=== PATIENT | male | born 1930 | race Caucasian/White ===

== ENCOUNTER 2016-05-15 15:51 | Inpatient (IN) | payer OTHER ==
[~2016-05-15] VITALS: Ht 188 cm; Wt 93.6 kg
[~2016-05-15 15:51] MED LIST: ASPI-515 PO; ATOR80TA PO; CALC-31 PO; CARV12.52 PO; CARV3.122 PO; CHOL10002 PO; CYAN10008 PO; DICL50TA4 PO; ENAL20TA PO; FERR325T20 PO; FLUT16SP NAS; FURO-93 PO; GLUC1500 PO; LEVO750T26 PO; LEVO750T6 PO; LISI-420 PO; LOSA50TA6 PO; METF500T4 PO; OMEG500C3 PO; OMEP20TA62 PO; SIMV80TA3 PO; VALS80TA3 PO; ZOLP10TA5 PO
[2016-05-15] MEDS ORDERED: SODIUM CHLORIDE FLUSH 10ML SYR IVF ONE (16:30)
[2016-05-15 16:45] LABS: HEMOGLOBIN 11.4 g/dL (13.7-18.0)
[2016-05-15 16:56] LABS: BLOOD UREA NITROGEN 15 mg/dL (7-18)
[2016-05-15 17:05] LABS: IS PT STATUS REG ER OR PRE ER? YES
[2016-05-15] MEDS ORDERED: FUROSEMIDE 40 MG/4 ML ONE (17:29)
[2016-05-15] MEDS ORDERED: NITROGLYCERIN OINT 2%, 1GM TP ONE ×2 (17:29→17:30)
[2016-05-15] MEDS ORDERED: FUROSEMIDE 40 MG/4 ML IVPush ONE (17:30)
[2016-05-15] MEDS ORDERED: DOCUSATE 100 MG CAPSULE PO PRN (18:30)
[2016-05-15] MEDS ORDERED: POLYETHYLENE GLYCOL 17 GM PACKET PO PRN (18:30)
[2016-05-15 22:30] VITALS: BP 159/63
[2016-05-15 22:53] VITALS: BP 159/63
[2016-05-15] MEDS: LOSARTAN 50MG TABLET PO SCH (23:10)
[2016-05-15] MEDS: CARVEDILOL 3.125 MG TABLET PO SCH (23:10)
[2016-05-15] MEDS: ATORVASTATIN 80 MG TABLET PO SCH (23:10)
[2016-05-15] MEDS: metFORMIN 500 MG TABLET PO SCH (23:10)
[2016-05-16 04:05] VITALS: BP 163/90
[2016-05-16 07:27] LABS: BLOOD UREA NITROGEN 17 mg/dL (7-18)
[2016-05-16 08:00] VITALS: BP 131/69
[2016-05-16] MEDS ORDERED: FUROSEMIDE 40 MG/4 ML IV ONE (09:00)
[2016-05-16] MEDS: metFORMIN 500 MG TABLET PO SCH ×2 (09:54→21:32)
[2016-05-16] MEDS: CARVEDILOL 3.125 MG TABLET PO SCH ×2 (09:54→21:31)
[2016-05-16] MEDS: ASPIRIN 81 MG TABLET EC PO SCH (09:54)
[2016-05-16] MEDS: DICLOFENAC 50 MG TABLET.DR PO SCH (09:54)
[2016-05-16] MEDS: FERROUS SULFATE 325 MG TABLET PO SCH (09:55)
[2016-05-16] MEDS: LOSARTAN 50MG TABLET PO SCH ×2 (09:55→21:32)
[2016-05-16] MEDS: CHOLECALCIFEROL 1,000 UNIT TABLET PO SCH (09:55)
[2016-05-16 15:11] VITALS: BP 108/64
[2016-05-16 19:22] VITALS: BP 117/72
[2016-05-16 19:27] VITALS: BP 129/69
[2016-05-16] MEDS: ATORVASTATIN 80 MG TABLET PO SCH (21:32)
[2016-05-16 21:44] VITALS: BP 125/68
[2016-05-17] MEDS ORDERED: DIPHENHYDRAMINE 25 MG CAPSULE PO ONE (01:00)
[2016-05-17 02:55] VITALS: BP 109/68
[2016-05-17 07:30] VITALS: BP 124/78
[2016-05-17] MEDS: LOSARTAN 50MG TABLET PO SCH (08:15)
[2016-05-17] MEDS: CHOLECALCIFEROL 1,000 UNIT TABLET PO SCH (08:16)
[2016-05-17] MEDS: CARVEDILOL 3.125 MG TABLET PO SCH (08:17)
[2016-05-17] MEDS: FERROUS SULFATE 325 MG TABLET PO SCH (08:18)
[2016-05-17] MEDS: ASPIRIN 81 MG TABLET EC PO SCH (08:18)
[2016-05-17] MEDS: DICLOFENAC 50 MG TABLET.DR PO SCH (08:18)
[2016-05-17] MEDS: metFORMIN 500 MG TABLET PO SCH (08:19)
[2016-05-17 14:14] VITALS: BP 113/73
== END 2016-05-17 18:35 | disposition home health service (06) | DRG 291 ==
LOC: ED 16:33 → EDIP 17:36 → 4WST 22:18
PROVIDERS: ADMIT Student in an Organized Health Care Education/Training Program; ATTEND Student in an Organized Health Care Education/Training Program
DX: I11.0 Hypertensive heart disease with heart failure (principal); J96.01 Acute respiratory failure with hypoxia; I50.43 Acute on chronic combined systolic (congestive) and diastolic (congestive) heart failure; E11.9 Type 2 diabetes mellitus without complications; E78.5 Hyperlipidemia, unspecified; D64.9 Anemia, unspecified; G47.33 Obstructive sleep apnea (adult) (pediatric); I25.10 Atherosclerotic heart disease of native coronary artery without angina pectoris; I35.0 Nonrheumatic aortic (valve) stenosis; K21.9 Gastro-esophageal reflux disease without esophagitis; Z95.5 Presence of coronary angioplasty implant and graft; I25.2 Old myocardial infarction; Z90.49 Acquired absence of other specified parts of digestive tract; Z91.041 Radiographic dye allergy status; Z82.49 Family history of ischemic heart disease and other diseases of the circulatory system
CPT/HCPCS: 36415; 71010; 80048; 82040; 82962; 83880; 84484; 85025; 93005; 93306; 96374; J1940; Q0163

== ENCOUNTER → 2016-07-10 | Outpatient (CLI) | payer OTHER | END | disposition home or self-care (01) | LOC: CFH 15:37 | PROVIDERS: ATTEND Internal Medicine Cardiovascular Disease | DX: I08.3 Combined rheumatic disorders of mitral, aortic and tricuspid valves (principal); I37.1 Nonrheumatic pulmonary valve insufficiency; I51.7 Cardiomegaly; I10 Essential (primary) hypertension; E78.5 Hyperlipidemia, unspecified; Z95.5 Presence of coronary angioplasty implant and graft | CPT/HCPCS: 93306 ==

== ENCOUNTER 2016-08-27 08:44 | Emergency (ER) | payer OTHER ==
[~2016-08-27] VITALS: Ht 185.4 cm; Wt 93.9 kg
[2016-08-27 09:45] VITALS: BP 146/83
== END 2016-08-27 10:57 | disposition home or self-care (01) ==
LOC: ED 10:51
DX: S39.012A Strain of muscle, fascia and tendon of lower back, initial encounter (principal); E11.9 Type 2 diabetes mellitus without complications; E78.5 Hyperlipidemia, unspecified; I10 Essential (primary) hypertension; K21.9 Gastro-esophageal reflux disease without esophagitis; W01.0XXA Fall on same level from slipping, tripping and stumbling without subsequent striking against object, initial encounter; Y93.89 Activity, other specified; Y99.8 Other external cause status; Y92.009 Unspecified place in unspecified non-institutional (private) residence as the place of occurrence of the external cause
CPT/HCPCS: 72110; 99284

== ENCOUNTER 2016-09-08 17:04 | Inpatient (IN) | payer OTHER ==
[~2016-09-08] VITALS: Ht 186.7 cm; Wt 81.0 kg
[2016-09-08] MEDS ORDERED: SODIUM CHLORIDE FLUSH 10ML SYR IVF ONE (18:00)
[2016-09-08 18:25] LABS: BLOOD UREA NITROGEN 18 mg/dL (7-18)
[2016-09-08 18:31] LABS: IS PT STATUS REG ER OR PRE ER? YES
[2016-09-08] MEDS ORDERED: OXYC-223 PO (19:43)
[2016-09-08 21:18] VITALS: BP 157/90
[2016-09-08] MEDS ORDERED: GLUCAGON 1 MG IM PRN (23:30)
[2016-09-08] MEDS ORDERED: DICLOFENAC 50 MG TABLET.DR PO PRN ×2 (23:30)
[2016-09-08] MEDS ORDERED: DEXTROSE 50%, 50ML SYRINGE IVPush PRN (23:30)
[2016-09-08] MEDS ORDERED: ENALAPRILAT 1.25 MG/ML, 2ML IVPush PRN (23:30)
[2016-09-08] MEDS ORDERED: ACETAMINOPHEN 325 MG TABLET PO PRN (23:30)
[2016-09-08 23:39] LABS: IS PT STATUS REG ER OR PRE ER? NO
[2016-09-08] MEDS: OXYcodone/APAP 5/325MG TABLET PO PRN ×2 (23:51→23:54)
[2016-09-09 02:40] VITALS: BP 134/73
[2016-09-09 03:25] LABS: IS PT STATUS REG ER OR PRE ER? NO
[2016-09-09] MEDS: OXYcodone/APAP 5/325MG TABLET PO PRN ×2 (04:09→12:17)
[2016-09-09] MEDS ORDERED: INSULIN ASPART 100 UNITS/ML, PEN SQ-INSULIN SCH (07:00)
[2016-09-09 07:05] LABS: IS PT STATUS REG ER OR PRE ER? NO
[2016-09-09 07:24] VITALS: BP 119/67
[2016-09-09] MEDS ORDERED: FUROSEMIDE 20 MG TABLET PO SCH (09:00)
[2016-09-09] MEDS ORDERED: LOSARTAN 50MG TABLET PO SCH (09:00)
[2016-09-09] MEDS ORDERED: OMEPRAZOLE 20 MG CAPSULE.DR PO SCH (09:00)
[2016-09-09] MEDS ORDERED: CARVEDILOL 3.125 MG TABLET PO SCH (09:00)
[2016-09-09] MEDS ORDERED: CHOLECALCIFEROL 1,000 UNIT TABLET PO SCH (09:00)
[2016-09-09] MEDS ORDERED: FLUTICASONE NASAL SPRAY 16GM NAS SCH (09:00)
[2016-09-09] MEDS ORDERED: ASPIRIN 81 MG TABLET EC PO SCH (09:00)
[2016-09-09] MEDS ORDERED: FERROUS SULFATE 325 MG TABLET PO SCH (09:00)
[2016-09-09] MEDS ORDERED: SODIUM CHLORIDE FLUSH 10ML SYR IVF SCH (09:00)
[2016-09-09] MEDS ORDERED: DICL50TA4 PO (10:46)
[2016-09-09] MEDS ORDERED: OXYC1TAB7 PO (10:46)
[2016-09-09] MEDS ORDERED: ATORVASTATIN 80 MG TABLET PO SCH (21:00)
== END 2016-09-09 13:25 | disposition home or self-care (01) | DRG 551 ==
LOC: ED 19:24 → EDIP 20:17 → 5SO 20:28
PROVIDERS: ADMIT Family Medicine; ATTEND Family Medicine
PROC: 5A09357 Assistance with Respiratory Ventilation, Less than 24 Consecutive Hours, Continuous Positive Airway Pressure (ICD-10-PCS; principal; 2016-09-08)
DX: M51.36 Other intervertebral disc degeneration, lumbar region (principal); J96.01 Acute respiratory failure with hypoxia; S32.020A Wedge compression fracture of second lumbar vertebra, initial encounter for closed fracture; M54.5 Low back pain; I11.0 Hypertensive heart disease with heart failure; I50.9 Heart failure, unspecified; E11.9 Type 2 diabetes mellitus without complications; E78.5 Hyperlipidemia, unspecified; G47.33 Obstructive sleep apnea (adult) (pediatric); G89.29 Other chronic pain; Z66 Do not resuscitate; I25.10 Atherosclerotic heart disease of native coronary artery without angina pectoris; I25.2 Old myocardial infarction; J44.9 Chronic obstructive pulmonary disease, unspecified; Z91.041 Radiographic dye allergy status; Z95.5 Presence of coronary angioplasty implant and graft; Z99.81 Dependence on supplemental oxygen; Z87.01 Personal history of pneumonia (recurrent); Z82.49 Family history of ischemic heart disease and other diseases of the circulatory system; Z83.3 Family history of diabetes mellitus; Z84.89 Family history of other specified conditions; Z79.82 Long term (current) use of aspirin; Z79.84 Long term (current) use of oral hypoglycemic drugs; Z79.899 Other long term (current) drug therapy
CPT/HCPCS: 36415; 71010; 78582; 80048; 82040; 82947; 83880; 84484; 85025; 93005; 99285; A9540; A9558; C9898

== ENCOUNTER 2016-09-17 16:11 | Emergency (ER) | payer OTHER ==
[~2016-09-17] VITALS: Ht 185.4 cm; Wt 86.7 kg
[~2016-09-17 16:11] MED LIST changes: +OXYC-223 PO; +OXYC1TAB7 PO
[2016-09-17] MEDS ORDERED: PROMETHAZINE 25 MG/ML, 1ML ONE (16:55)
[2016-09-17] MEDS ORDERED: HYDROmorphone 1 MG/ML, 1ML ONE (16:55)
[2016-09-17] MEDS ORDERED: HYDROmorphone 1 MG/ML, 1ML IM SCH (17:00)
[2016-09-17] MEDS ORDERED: PROMETHAZINE 25 MG/ML, 1ML IM ONE (17:00)
[2016-09-17 19:47] VITALS: BP 117/75
== END 2016-09-17 20:06 | disposition home or self-care (01) ==
LOC: ED 16:46
DX: G89.11 Acute pain due to trauma (principal); M54.6 Pain in thoracic spine; I11.0 Hypertensive heart disease with heart failure; I50.9 Heart failure, unspecified; E11.9 Type 2 diabetes mellitus without complications; K21.9 Gastro-esophageal reflux disease without esophagitis; I25.10 Atherosclerotic heart disease of native coronary artery without angina pectoris; I25.2 Old myocardial infarction; W18.30XA Fall on same level, unspecified, initial encounter; Y93.01 Activity, walking, marching and hiking; Y92.89 Other specified places as the place of occurrence of the external cause; Y99.9 Unspecified external cause status
CPT/HCPCS: 72146; 72148; 96372; 99284; J1170; J2550

== ENCOUNTER 2016-09-23 14:00 | Emergency (ER) | payer OTHER ==
[~2016-09-23] VITALS: Ht 185.4 cm; Wt 83.7 kg
[2016-09-23 14:02] VITALS: BP 133/72
[2016-09-23] MEDS ORDERED: HYDROmorphone 1 MG/ML, 1ML IM ONE (15:30)
[2016-09-23] MEDS ORDERED: HYDROmorphone 1 MG/ML, 1ML ONE (15:33)
== END 2016-09-23 16:23 | disposition home or self-care (01) ==
LOC: ED 15:19
DX: S32.018A Other fracture of first lumbar vertebra, initial encounter for closed fracture (principal); S22.088A Other fracture of T11-T12 vertebra, initial encounter for closed fracture; K21.9 Gastro-esophageal reflux disease without esophagitis; E78.5 Hyperlipidemia, unspecified; E11.9 Type 2 diabetes mellitus without complications; I11.0 Hypertensive heart disease with heart failure; I50.9 Heart failure, unspecified; I25.10 Atherosclerotic heart disease of native coronary artery without angina pectoris; W19.XXXA Unspecified fall, initial encounter; Y93.89 Activity, other specified; Y92.009 Unspecified place in unspecified non-institutional (private) residence as the place of occurrence of the external cause; Y99.9 Unspecified external cause status
CPT/HCPCS: 96372; 99283; J1170

== ENCOUNTER 2016-10-04 20:06 | Observation (INO) | payer OTHER ==
[~2016-10-04] VITALS: Ht 175.3 cm; Wt 83.0 kg
[2016-10-04] MEDS ORDERED: MORPHINE SULFATE 4 MG/ML, 1ML IVPush PRN ×2 (20:30→22:00)
[2016-10-04] MEDS ORDERED: ONDANSETRON 2MG/ML, 2ML IVPush ONE (20:30)
[2016-10-04] MEDS ORDERED: SODIUM CHLORIDE FLUSH 10ML SYR IVF ONE (20:30)
[2016-10-04 21:01] LABS: BLOOD UREA NITROGEN 22 mg/dL (7-18)
[2016-10-04] MEDS ORDERED: HYDROmorphone 1 MG/ML, 1ML IVPush PRN (21:30)
[2016-10-04] MEDS ORDERED: HYDROmorphone 1 MG/ML, 1ML ONE (21:33)
[2016-10-04] MEDS ORDERED: SODIUM CHLORIDE 0.9% 1,000 ML IV ONE (21:33)
[2016-10-04] MEDS ORDERED: ONDANSETRON 2MG/ML, 2ML ONE (21:33)
[2016-10-04] MEDS ORDERED: ONDANSETRON 2MG/ML, 2ML IVPush PRN ×2 (22:00→22:30)
[2016-10-04] MEDS ORDERED: D5%-0.45NACL+KCL 20MEQ 1,000 ML IV SCH (22:13)
[2016-10-04] MEDS ORDERED: morphine SULFATE 10 MG/ML, 1ML IVPush PRN (22:30)
[2016-10-04] MEDS ORDERED: POLYETHYLENE GLYCOL 17 GM PACKET PO PRN (22:30)
[2016-10-04] MEDS ORDERED: LABETALOL 5MG/ML, 20ML IVPush PRN (22:30)
[2016-10-04] MEDS ORDERED: NITROGLYCERIN 0.4 MG BOTTLE (25 TABS) SL PRN (22:30)
[2016-10-04] MEDS ORDERED: ONDANSETRON ODT 4 MG PO PRN (22:30)
[2016-10-05 03:05] VITALS: BP 128/69
[2016-10-05] MEDS: LACTULOSE 10 GM/15 ML UDC PO SCH ×3 (03:25→21:33)
[2016-10-05] MEDS: HEPARIN 5,000 UNITS/ML, 1ML SQ SCH ×3 (03:25→20:09)
[2016-10-05 03:34] VITALS: BP 131/73
[2016-10-05] MEDS: ASPIRIN 81 MG TABLET EC PO SCH (08:08)
[2016-10-05] MEDS: CALCIUM/VITAMIN D3 250-125 TABLET PO SCH (08:08)
[2016-10-05] MEDS: OMEPRAZOLE 20 MG CAPSULE.DR PO SCH (08:08)
[2016-10-05] MEDS: SENNA/DOCUSATE TABLET PO SCH (08:08)
[2016-10-05] MEDS: LOSARTAN 50MG TABLET PO SCH ×2 (08:09→21:00)
[2016-10-05] MEDS: FUROSEMIDE 20 MG TABLET PO SCH (08:09)
[2016-10-05] MEDS: CARVEDILOL 3.125 MG TABLET PO SCH ×2 (08:09→21:00)
[2016-10-05] MEDS: CHOLECALCIFEROL 1,000 UNIT TABLET PO SCH (08:09)
[2016-10-05 08:53] VITALS: BP 130/72
[2016-10-05] MEDS ORDERED: metFORMIN 500 MG TABLET PO SCH (09:00)
[2016-10-05] MEDS: FLUTICASONE NASAL SPRAY 16GM NAS SCH (09:00)
[2016-10-05] MEDS ORDERED: HEMORRHOIDAL OINT, 28 GM (PREP H) RC PRN (12:00)
[2016-10-05 14:20] VITALS: BP 126/67
[2016-10-05 20:22] VITALS: BP 103/62
[2016-10-05] MEDS ORDERED: ATORVASTATIN 80 MG TABLET PO SCH (21:00)
[2016-10-06 02:36] VITALS: BP 96/46
[2016-10-06] MEDS: HEPARIN 5,000 UNITS/ML, 1ML SQ SCH ×2 (04:25→12:02)
[2016-10-06 04:27] VITALS: BP 111/61
[2016-10-06 07:06] LABS: BLOOD UREA NITROGEN 15 mg/dL (7-18)
[2016-10-06 07:42] VITALS: BP 114/63
[2016-10-06 08:40] VITALS: BP 110/62
[2016-10-06] MEDS: ASPIRIN 81 MG TABLET EC PO SCH (08:43)
[2016-10-06] MEDS: OMEPRAZOLE 20 MG CAPSULE.DR PO SCH (08:43)
[2016-10-06] MEDS: SENNA/DOCUSATE TABLET PO SCH (08:43)
[2016-10-06] MEDS: FUROSEMIDE 20 MG TABLET PO SCH (08:44)
[2016-10-06] MEDS: CALCIUM/VITAMIN D3 250-125 TABLET PO SCH (08:44)
[2016-10-06] MEDS: CHOLECALCIFEROL 1,000 UNIT TABLET PO SCH (08:44)
[2016-10-06] MEDS: LACTULOSE 10 GM/15 ML UDC PO SCH (08:44)
[2016-10-06] MEDS: CARVEDILOL 3.125 MG TABLET PO SCH (08:44)
[2016-10-06] MEDS: LOSARTAN 50MG TABLET PO SCH (08:45)
[2016-10-06] MEDS: FLUTICASONE NASAL SPRAY 16GM NAS SCH (08:45)
[2016-10-06 14:01] VITALS: BP 100/52
[2016-10-06] MEDS ORDERED: SENN1TAB7 PO (16:22)
[2016-10-06] MEDS ORDERED: POLY17PO5 PO (16:22)
[2016-10-06 17:12] VITALS: BP 115/60
== END 2016-10-06 17:40 | disposition home or self-care (01) ==
LOC: ED 21:00 → INTOOBSV 21:33 → EDIP 21:33 → 4NOR 23:16
PROVIDERS: ADMIT Family Medicine; ATTEND Family Medicine
DX: M48.56XA Collapsed vertebra, not elsewhere classified, lumbar region, initial encounter for fracture (principal); M54.5 Low back pain; K59.00 Constipation, unspecified; N17.9 Acute kidney failure, unspecified; I25.10 Atherosclerotic heart disease of native coronary artery without angina pectoris; J44.9 Chronic obstructive pulmonary disease, unspecified; D64.9 Anemia, unspecified; E11.9 Type 2 diabetes mellitus without complications; G47.33 Obstructive sleep apnea (adult) (pediatric); I11.0 Hypertensive heart disease with heart failure; I50.30 Unspecified diastolic (congestive) heart failure
CPT/HCPCS: 36415; 74000; 80048; 82040; 82962; 85025; 96361; 96372; 96374; 96375; 97116; 97162; 99285; G0378; J1170; J1644; J2405; J3480

== ENCOUNTER 2016-10-08 10:51 | Day surgery (SDC) | payer OTHER ==
[~2016-10-08] VITALS: Ht 186.7 cm; Wt 81.7 kg
[~2016-10-08 10:51] MED LIST changes: +POLY17PO5 PO; +SENN1TAB7 PO
[2016-10-08] MEDS ORDERED: CEFAZOLIN PMX 1GM/50ML 50 ML IV ONE (11:30)
[2016-10-08 11:31] VITALS: BP 154/52
[2016-10-08] MEDS ORDERED: SODIUM CHLORIDE 0.9% 1,000 ML IV SCH (11:36)
[2016-10-08] MEDS ORDERED: NALOXONE 1 MG/ML, 2ML ONE (13:21)
[2016-10-08] MEDS ORDERED: FLUMAZENIL 0.1 MG/1 ML, 5ML ONE (13:21)
[2016-10-08] MEDS ORDERED: FENTANYL PF 100 MCG/2ML ONE (13:21)
[2016-10-08] MEDS ORDERED: MIDAZOLAM 1 MG/ML, 5ML ONE (13:21)
[2016-10-08] MEDS ORDERED: LIDOCAINE 1%, 20ML ONE ×2 (13:41→15:06)
[2016-10-08] MEDS ORDERED: OXYcodone/APAP 7.5/325MG TABLET ONE (16:29)
[2016-10-08] MEDS ORDERED: OXYcodone/APAP 7.5/325MG TABLET PO ONE (17:00)
== END 2016-10-08 17:00 | disposition home or self-care (01) ==
LOC: OUT 10:51
PROVIDERS: ATTEND Radiology Diagnostic Radiology
DX: M48.54XA Collapsed vertebra, not elsewhere classified, thoracic region, initial encounter for fracture (principal); M48.56XA Collapsed vertebra, not elsewhere classified, lumbar region, initial encounter for fracture; E11.9 Type 2 diabetes mellitus without complications; I11.0 Hypertensive heart disease with heart failure; I50.9 Heart failure, unspecified; Z95.5 Presence of coronary angioplasty implant and graft; Z88.8 Allergy status to other drugs, medicaments and biological substances; Z87.01 Personal history of pneumonia (recurrent)
CPT/HCPCS: 22510; C9359; J0690; J2250; J3010; J3490; J7030; J2310

== ENCOUNTER 2016-11-06 13:38 | Observation (INO) | payer OTHER ==
[~2016-11-06] VITALS: Ht 185.4 cm; Wt 80.8 kg
[~2016-11-06 13:38] MED LIST changes: +CYAN100072 PO; -CYAN10008 PO; +FERR325T18 PO; -FERR325T20 PO; -OXYC-223 PO; +OXYC-306 PO
[2016-11-06] MEDS ORDERED: TRAM50TA2 PO (14:10)
[2016-11-06 14:54] LABS: HEMATOCRIT 33.8 % (39.2-51.8); HEMOGLOBIN 11.4 g/dL (13.7-18.0); WHITE BLOOD COUNT 5.2 x10^3/uL (3.4-10)
[2016-11-06 15:06] LABS: ASPARTATE AMINO TRANSFERASE 17 U/L (15-37); BLOOD UREA NITROGEN 28 mg/dL (7-18)
[2016-11-06 15:20] LABS: IS PT STATUS REG ER OR PRE ER? YES
[2016-11-06 15:36] LABS: PATH.CAST-FLAG NOT PRESENT; SPERM-FLAG NOT PRESENT; SRC-FLAG NOT PRESENT; XTAL-FLAG NOT PRESENT; YLC-FLAG NOT PRESENT
[2016-11-06] MEDS ORDERED: SODIUM CHLORIDE 0.9% 1,000 ML IV SCH (17:09)
[2016-11-06] MEDS ORDERED: ONDANSETRON ODT 4 MG PO PRN (17:30)
[2016-11-06] MEDS ORDERED: ACETAMINOPHEN 325 MG TABLET PO PRN (17:30)
[2016-11-06] MEDS ORDERED: POLYETHYLENE GLYCOL 17 GM PACKET PO PRN (17:30)
[2016-11-06] MEDS ORDERED: SODIUM CHLORIDE 0.9%, 250ML IVBOLUS ONE (18:00)
[2016-11-06 18:18] VITALS: BP 150/89
[2016-11-06] MEDS ORDERED: GLUCAGON 1 MG IM PRN (18:30)
[2016-11-06] MEDS ORDERED: DEXTROSE 4 GM TAB.CHEW PO PRN (18:30)
[2016-11-06] MEDS ORDERED: DEXTROSE 50%, 50ML SYRINGE IVPush PRN (18:30)
[2016-11-06 18:55] VITALS: BP 132/70
[2016-11-06 19:34] VITALS: BP 132/70
[2016-11-06] MEDS ORDERED: ATORVASTATIN 80 MG TABLET PO SCH (21:00)
[2016-11-06] MEDS: HEPARIN 5,000 UNITS/ML, 1ML SQ SCH (21:39)
[2016-11-06] MEDS: CARVEDILOL 3.125 MG TABLET PO SCH (21:40)
[2016-11-06] MEDS: LOSARTAN 50MG TABLET PO SCH (21:40)
[2016-11-06] MEDS: metFORMIN 500 MG TABLET PO SCH (21:40)
[2016-11-07] MEDS ORDERED: ZOLPIDEM 5MG TABLET PO PRN (02:00)
[2016-11-07] MEDS: SODIUM CHLORIDE FLUSH 10ML SYR IVF SCH ×2 (02:13→09:31)
[2016-11-07 02:32] VITALS: BP 131/64
[2016-11-07 06:08] LABS: HEMATOCRIT 33.8 % (39.2-51.8); HEMOGLOBIN 11.4 g/dL (13.7-18.0); WHITE BLOOD COUNT 5.2 x10^3/uL (3.4-10)
[2016-11-07 06:20] LABS: BLOOD UREA NITROGEN 22 mg/dL (7-18)
[2016-11-07 06:46] LABS: FERRITIN 153.4 ng/mL (26-388)
[2016-11-07 07:30] VITALS: BP 138/81
[2016-11-07] MEDS ORDERED: OMEPRAZOLE 20 MG CAPSULE.DR PO SCH (07:30)
[2016-11-07] MEDS: CARVEDILOL 3.125 MG TABLET PO SCH (07:32)
[2016-11-07] MEDS: metFORMIN 500 MG TABLET PO SCH (07:32)
[2016-11-07] MEDS: HEPARIN 5,000 UNITS/ML, 1ML SQ SCH (07:32)
[2016-11-07] MEDS: LOSARTAN 50MG TABLET PO SCH (07:32)
[2016-11-07] MEDS ORDERED: SENNA/DOCUSATE TABLET PO SCH ×2 (09:00)
[2016-11-07] MEDS ORDERED: CHOLECALCIFEROL 1,000 UNIT TABLET PO SCH (09:00)
[2016-11-07] MEDS ORDERED: ASPIRIN 81 MG TABLET EC PO SCH (09:00)
[2016-11-07] MEDS ORDERED: FERROUS SULFATE 325 MG TABLET PO SCH (09:00)
[2016-11-07] MEDS ORDERED: FLUTICASONE NASAL SPRAY 16GM NAS SCH (09:00)
[2016-11-07 09:59] VITALS: BP 147/76
[2016-11-07 10:01] VITALS: BP 143/77
[2016-11-07 10:03] VITALS: BP 129/76
[2016-11-07] MEDS ORDERED: FURO-93 PO (11:15)
[2016-11-07] MEDS ORDERED: LOSA50TA2 PO (13:45)
== END 2016-11-07 14:02 | disposition home or self-care (01) ==
LOC: ED 15:55 → EDIP 16:19 → INTOOBSV 16:19 → 4EST 18:11
PROVIDERS: ADMIT Family Medicine; ATTEND Family Medicine
DX: E86.0 Dehydration (principal); D64.9 Anemia, unspecified; E11.9 Type 2 diabetes mellitus without complications; E78.5 Hyperlipidemia, unspecified; E86.1 Hypovolemia; G47.33 Obstructive sleep apnea (adult) (pediatric); G89.29 Other chronic pain; I08.1 Rheumatic disorders of both mitral and tricuspid valves; I11.0 Hypertensive heart disease with heart failure; I21.3 ST elevation (STEMI) myocardial infarction of unspecified site; I25.10 Atherosclerotic heart disease of native coronary artery without angina pectoris; I25.2 Old myocardial infarction; I35.0 Nonrheumatic aortic (valve) stenosis; I35.1 Nonrheumatic aortic (valve) insufficiency; I49.3 Ventricular premature depolarization; I50.9 Heart failure, unspecified; J44.9 Chronic obstructive pulmonary disease, unspecified; K21.9 Gastro-esophageal reflux disease without esophagitis; Z95.5 Presence of coronary angioplasty implant and graft
CPT/HCPCS: 36415; 71010; 80048; 80053; 81001; 82607; 82728; 82746; 82962; 83880; 84443; 84484; 85025; 85610; 85730; 87086; 93005; 96372; 99285; G0378; J1644; J7050

== ENCOUNTER 2016-11-10 09:49 | Observation (INO) | payer OTHER ==
[~2016-11-10] VITALS: Ht 188 cm; Wt 78.3 kg
[~2016-11-10 09:49] MED LIST changes: +LOSA50TA2 PO; +TRAM50TA2 PO
[2016-11-10] MEDS ORDERED: NITROGLYCERIN SINGLE TAB 0.4 MG SL ONE (10:28)
[2016-11-10] MEDS ORDERED: NITROGLYCERIN SINGLE TAB 0.4 MG SL PRN (10:30)
[2016-11-10 10:34] LABS: HEMATOCRIT 34.5 % (39.2-51.8); HEMOGLOBIN 11.7 g/dL (13.7-18.0); WHITE BLOOD COUNT 4.4 x10^3/uL (3.4-10)
[2016-11-10 10:45] LABS: BLOOD UREA NITROGEN 32 mg/dL (7-18)
[2016-11-10] MEDS ORDERED: SODIUM CHLORIDE FLUSH 10ML SYR IVF ONE ×2 (11:30→14:00)
[2016-11-10] MEDS ORDERED: ENOXAPARIN 40 MG/0.4 ML SQ SCH (15:00)
[2016-11-10] MEDS ORDERED: MORPHINE SULFATE 4 MG/ML, 1ML IVPush PRN ×2 (16:00→22:30)
[2016-11-10] MEDS ORDERED: ACETAMINOPHEN 325 MG TABLET PO PRN (16:00)
[2016-11-10 16:26] LABS: IS PT STATUS REG ER OR PRE ER? NO
[2016-11-10 16:44] VITALS: BP 109/58
[2016-11-10 19:44] VITALS: BP 103/58
[2016-11-10] MEDS ORDERED: ATORVASTATIN 80 MG TABLET PO SCH (21:00)
[2016-11-10] MEDS: metFORMIN 500 MG TABLET PO SCH ×2 (21:00→21:13)
[2016-11-10] MEDS: CARVEDILOL 3.125 MG TABLET PO SCH (21:13)
[2016-11-10] MEDS: LOSARTAN 50MG TABLET PO SCH (21:14)
[2016-11-10] MEDS: OMEGA-3/FISH OIL CAPSULE PO SCH (21:14)
[2016-11-10 22:51] LABS: IS PT STATUS REG ER OR PRE ER? NO
[2016-11-11 02:00] VITALS: BP 107/63
[2016-11-11 05:20] VITALS: BP 120/67
[2016-11-11 06:03] LABS: IS PT STATUS REG ER OR PRE ER? NO
[2016-11-11] MEDS ORDERED: OMEPRAZOLE 20 MG CAPSULE.DR PO SCH (07:30)
[2016-11-11] MEDS ORDERED: CHOLECALCIFEROL 1,000 UNIT TABLET PO SCH (09:00)
[2016-11-11] MEDS ORDERED: CYANOCOBALAMIN 1,000 MCG TABLET PO SCH ×2 (09:00)
[2016-11-11] MEDS ORDERED: ASPIRIN 81 MG TABLET EC PO SCH ×2 (09:00)
[2016-11-11] MEDS ORDERED: FLUTICASONE NASAL SPRAY 16GM NAS SCH ×2 (09:00)
[2016-11-11] MEDS ORDERED: FERROUS SULFATE 325 MG TABLET PO SCH ×2 (09:00)
[2016-11-11] MEDS ORDERED: SENNA/DOCUSATE TABLET PO SCH ×3 (09:00)
[2016-11-11] MEDS ORDERED: REGADENOSON 0.4 MG/5 ML SYRINGE ONE (09:36)
[2016-11-11] MEDS: CARVEDILOL 3.125 MG TABLET PO SCH (12:00)
[2016-11-11] MEDS: LOSARTAN 50MG TABLET PO SCH (12:00)
[2016-11-11] MEDS: OMEGA-3/FISH OIL CAPSULE PO SCH (12:00)
[2016-11-11] MEDS: metFORMIN 500 MG TABLET PO SCH (12:01)
[2016-11-11 12:32] VITALS: BP 127/63
[2016-11-11] MEDS ORDERED: ENOXAPARIN 40 MG/0.4 ML SQ SCH (15:00)
[2016-11-12] MEDS ORDERED: CHOLECALCIFEROL 1,000 UNIT TABLET PO SCH (09:00)
== END 2016-11-11 19:06 | disposition home or self-care (01) ==
LOC: ED 11:03 → INTOOBSV 12:27 → EDIP 12:27 → 5SO 13:37 → 4EST 16:26 → 4WST 20:33
PROVIDERS: ADMIT Family Medicine; ATTEND Family Medicine
DX: R07.89 Other chest pain (principal); D64.9 Anemia, unspecified; I47.2 Ventricular tachycardia; G89.29 Other chronic pain; E11.9 Type 2 diabetes mellitus without complications; E78.5 Hyperlipidemia, unspecified; G47.33 Obstructive sleep apnea (adult) (pediatric); I25.10 Atherosclerotic heart disease of native coronary artery without angina pectoris; I11.0 Hypertensive heart disease with heart failure; I50.9 Heart failure, unspecified; I25.2 Old myocardial infarction; J44.9 Chronic obstructive pulmonary disease, unspecified; K21.9 Gastro-esophageal reflux disease without esophagitis; Z95.5 Presence of coronary angioplasty implant and graft; Z66 Do not resuscitate
CPT/HCPCS: 36415; 71010; 78452; 80048; 82040; 82962; 83880; 84484; 85025; 85610; 85730; 93005; 93017; 94660; 96372; 99285; A9502; C9898; G0378; J1650; J2785

== ENCOUNTER 2016-11-21 19:21 | Emergency (ER) | payer OTHER ==
[~2016-11-21] VITALS: Ht 188 cm; Wt 75.0 kg
[2016-11-21 19:50] LABS: HEMATOCRIT 37.7 % (39.2-51.8); HEMOGLOBIN 12.3 g/dL (13.7-18.0); WHITE BLOOD COUNT 5.1 x10^3/uL (3.4-10)
[2016-11-21 19:59] LABS: ASPARTATE AMINO TRANSFERASE 15 U/L (15-37); BLOOD UREA NITROGEN 25 mg/dL (7-18)
[2016-11-21] MEDS ORDERED: HYDROcodone/APAP 5/325 TABLET ONE (19:59)
[2016-11-21] MEDS ORDERED: ONDANSETRON ODT 4 MG ONE (19:59)
[2016-11-21] MEDS ORDERED: HYDROcodone/APAP 5/325 TABLET PO ONE (20:00)
[2016-11-21] MEDS ORDERED: ONDANSETRON ODT 4 MG PO ONE (20:00)
[2016-11-21 20:24] LABS: PATH.CAST-FLAG NOT PRESENT; SPERM-FLAG NOT PRESENT; SRC-FLAG NOT PRESENT; XTAL-FLAG NOT PRESENT; YLC-FLAG NOT PRESENT
[2016-11-21 21:30] VITALS: BP 152/71
== END 2016-11-21 21:33 | disposition home or self-care (01) ==
LOC: ED 20:49
DX: N20.1 Calculus of ureter (principal); K21.9 Gastro-esophageal reflux disease without esophagitis; E11.9 Type 2 diabetes mellitus without complications; I25.10 Atherosclerotic heart disease of native coronary artery without angina pectoris; I11.0 Hypertensive heart disease with heart failure; I50.9 Heart failure, unspecified; E78.5 Hyperlipidemia, unspecified; I25.2 Old myocardial infarction
CPT/HCPCS: 36415; 74176; 80053; 81001; 85025; 87086; 99285; Q0162

== ENCOUNTER 2016-12-22 15:12 | Inpatient (IN) | payer OTHER ==
[~2016-12-22] VITALS: Ht 188 cm; Wt 73.2 kg
[2016-12-22] MEDS ORDERED: DICL50TA4 PO (15:49)
[2016-12-22] MEDS ORDERED: GLUC1500 PO (15:51)
[2016-12-22] MEDS ORDERED: LOSA50TA6 PO (15:52)
[2016-12-22] MEDS ORDERED: SODIUM CHLORIDE FLUSH 10ML SYR IVF ONE (16:00)
[2016-12-22] MEDS ORDERED: ASPIRIN 81 MG TABLET CHEW PO ONE (16:00)
[2016-12-22] MEDS ORDERED: SODIUM CHLORIDE 0.9% 1,000ML IVBOLUS ONE (16:00)
[2016-12-22] MEDS ORDERED: ASPIRIN 81 MG TABLET CHEW ONE (16:15)
[2016-12-22 16:22] LABS: HEMATOCRIT 36.3 % (39.2-51.8); HEMOGLOBIN 12.1 g/dL (13.7-18.0); WHITE BLOOD COUNT 6.1 x10^3/uL (3.4-10)
[2016-12-22 16:32] LABS: ASPARTATE AMINO TRANSFERASE 28 U/L (15-37); BLOOD UREA NITROGEN 21 mg/dL (7-18)
[2016-12-22 16:38] LABS: IS PT STATUS REG ER OR PRE ER? YES
[2016-12-22] MEDS ORDERED: OXYC-302 PO (18:18)
[2016-12-22] MEDS ORDERED: TRAM50TA2 PO (18:18)
[2016-12-22] MEDS ORDERED: OXYcodone/APAP 5/325MG TABLET ONE (18:46)
[2016-12-22] MEDS ORDERED: NS + 20MEQ KCL 1,000 ML IV SCH (18:59)
[2016-12-22] MEDS ORDERED: ONDANSETRON 2MG/ML, 2ML IVPush PRN (19:00)
[2016-12-22] MEDS ORDERED: POLYETHYLENE GLYCOL 17 GM PACKET PO PRN (19:00)
[2016-12-22] MEDS ORDERED: ACETAMINOPHEN 325 MG TABLET PO PRN (19:00)
[2016-12-22] MEDS ORDERED: ONDANSETRON ODT 4 MG PO PRN (19:00)
[2016-12-22] MEDS ORDERED: OXYcodone/APAP 5/325MG TABLET PO ONE (19:00)
[2016-12-22 19:25] VITALS: BP 159/91
[2016-12-22] MEDS ORDERED: FUROSEMIDE 20 MG/2 ML IV ONE (19:30)
[2016-12-22] MEDS ORDERED: ENALAPRILAT 1.25 MG/ML, 2ML IV PRN (20:00)
[2016-12-22] MEDS: ATORVASTATIN 80 MG TABLET PO SCH (20:26)
[2016-12-22] MEDS: LOSARTAN 50MG TABLET PO SCH (20:27)
[2016-12-22] MEDS: metFORMIN 500 MG TABLET PO SCH (20:27)
[2016-12-22] MEDS: HEPARIN 5,000 UNITS/ML, 1ML SQ SCH (20:27)
[2016-12-22] MEDS: CARVEDILOL 3.125 MG TABLET PO SCH (20:27)
[2016-12-22 21:07] LABS: RAPID INFLUENZA A Negative (Negative); RAPID INFLUENZA B Negative (Negative)
[2016-12-22 22:26] LABS: IS PT STATUS REG ER OR PRE ER? NO
[2016-12-23 02:29] VITALS: BP 151/75
[2016-12-23 04:40] LABS: HEMATOCRIT 36.2 % (39.2-51.8); HEMOGLOBIN 12.1 g/dL (13.7-18.0); WHITE BLOOD COUNT 7.4 x10^3/uL (3.4-10)
[2016-12-23 04:51] LABS: BLOOD UREA NITROGEN 17 mg/dL (7-18)
[2016-12-23] MEDS: HYDROcodone/APAP 5/325 TABLET PO PRN ×3 (04:51→16:47)
[2016-12-23] MEDS: HEPARIN 5,000 UNITS/ML, 1ML SQ SCH ×3 (04:52→21:16)
[2016-12-23 05:29] LABS: IS PT STATUS REG ER OR PRE ER? NO
[2016-12-23 06:15] VITALS: BP 157/103
[2016-12-23 08:51] VITALS: BP 145/80
[2016-12-23] MEDS ORDERED: TEMPLATE NON-FORMULARY MED. (Glucosamine Hcl** 1,500 MG) PO SCH (09:00)
[2016-12-23] MEDS ORDERED: OMEGA-3/FISH OIL CAPSULE PO SCH (09:00)
[2016-12-23] MEDS: FLUTICASONE NASAL SPRAY 16GM NAS SCH (10:25)
[2016-12-23] MEDS: SENNA/DOCUSATE TABLET PO SCH (10:26)
[2016-12-23] MEDS: OMEPRAZOLE 20 MG CAPSULE.DR PO SCH (10:26)
[2016-12-23] MEDS: CHOLECALCIFEROL 1,000 UNIT TABLET PO SCH (10:26)
[2016-12-23] MEDS: CARVEDILOL 3.125 MG TABLET PO SCH ×2 (10:26→19:35)
[2016-12-23] MEDS: OMEGA-3/FISH OIL CAPSULE PO SCH (10:26)
[2016-12-23] MEDS: FERROUS SULFATE 325 MG TABLET PO SCH (10:26)
[2016-12-23] MEDS: metFORMIN 500 MG TABLET PO SCH ×2 (10:26→19:35)
[2016-12-23] MEDS: FUROSEMIDE 20 MG TABLET PO SCH (10:27)
[2016-12-23] MEDS: LOSARTAN 50MG TABLET PO SCH ×2 (10:27→19:35)
[2016-12-23] MEDS: ASPIRIN 81 MG TABLET EC PO SCH (10:28)
[2016-12-23] MEDS: CYANOCOBALAMIN 1,000 MCG TABLET PO SCH (10:34)
[2016-12-23] MEDS ORDERED: MAGNESIUM SULFATE PMX 2GM/50ML 50 ML IV ONE (13:00)
[2016-12-23 14:27] VITALS: BP 120/69
[2016-12-23 19:27] VITALS: BP 138/77
[2016-12-23] MEDS: ATORVASTATIN 80 MG TABLET PO SCH (19:36)
[2016-12-23] MEDS ORDERED: ZOLPIDEM 5MG TABLET ONE (21:12)
[2016-12-23] MEDS ORDERED: ZOLPIDEM 5MG TABLET PO PRN (21:30)
[2016-12-24 04:55] VITALS: BP 135/88
[2016-12-24] MEDS: HEPARIN 5,000 UNITS/ML, 1ML SQ SCH ×2 (05:04→13:00)
[2016-12-24 08:20] VITALS: BP 144/77
[2016-12-24] MEDS: FLUTICASONE NASAL SPRAY 16GM NAS SCH (08:23)
[2016-12-24] MEDS: OMEGA-3/FISH OIL CAPSULE PO SCH (08:23)
[2016-12-24] MEDS: FERROUS SULFATE 325 MG TABLET PO SCH (08:24)
[2016-12-24] MEDS: SENNA/DOCUSATE TABLET PO SCH (08:24)
[2016-12-24] MEDS: OMEPRAZOLE 20 MG CAPSULE.DR PO SCH (08:24)
[2016-12-24] MEDS: metFORMIN 500 MG TABLET PO SCH (08:24)
[2016-12-24] MEDS: CHOLECALCIFEROL 1,000 UNIT TABLET PO SCH (08:24)
[2016-12-24] MEDS: CARVEDILOL 3.125 MG TABLET PO SCH (08:24)
[2016-12-24] MEDS: FUROSEMIDE 20 MG TABLET PO SCH (08:24)
[2016-12-24] MEDS: CYANOCOBALAMIN 1,000 MCG TABLET PO SCH (08:24)
[2016-12-24] MEDS: LOSARTAN 50MG TABLET PO SCH (08:24)
[2016-12-24] MEDS: ASPIRIN 81 MG TABLET EC PO SCH (08:26)
[2016-12-24] MEDS ORDERED: FURO-93 PO (13:19)
== END 2016-12-24 15:40 | disposition home or self-care (01) | DRG 291 ==
LOC: ED 16:53 → EDIP 18:59 → 5SO 19:27
PROVIDERS: ADMIT Family Medicine; ATTEND Family Medicine
PROC: 5A09357 Assistance with Respiratory Ventilation, Less than 24 Consecutive Hours, Continuous Positive Airway Pressure (ICD-10-PCS; principal; 2016-12-24)
DX: I11.0 Hypertensive heart disease with heart failure (principal); J96.20 Acute and chronic respiratory failure, unspecified whether with hypoxia or hypercapnia; D64.9 Anemia, unspecified; E83.42 Hypomagnesemia; I08.3 Combined rheumatic disorders of mitral, aortic and tricuspid valves; E11.9 Type 2 diabetes mellitus without complications; E78.5 Hyperlipidemia, unspecified; I50.43 Acute on chronic combined systolic (congestive) and diastolic (congestive) heart failure; G47.33 Obstructive sleep apnea (adult) (pediatric); G89.29 Other chronic pain; I25.10 Atherosclerotic heart disease of native coronary artery without angina pectoris; G47.00 Insomnia, unspecified; R09.02 Hypoxemia; K21.9 Gastro-esophageal reflux disease without esophagitis; Z66 Do not resuscitate; Z79.82 Long term (current) use of aspirin; Z95.5 Presence of coronary angioplasty implant and graft; Z90.49 Acquired absence of other specified parts of digestive tract; Z91.041 Radiographic dye allergy status; Z82.49 Family history of ischemic heart disease and other diseases of the circulatory system; Z83.3 Family history of diabetes mellitus; Z79.899 Other long term (current) drug therapy
CPT/HCPCS: 36415; 71010; 78582; 80048; 80053; 81003; 83735; 83880; 84484; 85025; 85379; 85610; 85730; 87400; 93005; 94660; 96360; 96361; J1644; A9540; A9558; C9898; J1940; J3475; J7030

== ENCOUNTER 2017-01-29 15:27 | Inpatient (IN) | payer OTHER ==
[~2017-01-29] VITALS: Ht 188 cm; Wt 76.6 kg
[~2017-01-29 15:27] MED LIST changes: +OXYC-302 PO
[2017-01-29] MEDS ORDERED: ASPIRIN 81 MG TABLET CHEW PO ONE (16:00)
[2017-01-29] MEDS ORDERED: SODIUM CHLORIDE FLUSH 10ML SYR IVF ONE (16:00)
[2017-01-29 16:13] LABS: HEMATOCRIT 35.6 % (39.2-51.8); HEMOGLOBIN 11.9 g/dL (13.7-18.0); WHITE BLOOD COUNT 5.7 x10^3/uL (3.4-10)
[2017-01-29 16:27] LABS: BLOOD UREA NITROGEN 33 mg/dL (7-18)
[2017-01-29 16:33] LABS: ASPARTATE AMINO TRANSFERASE 20 U/L (15-37)
[2017-01-29 16:37] LABS: IS PT STATUS REG ER OR PRE ER? YES
[2017-01-29] MEDS ORDERED: ASPIRIN 81 MG TABLET CHEW ONE (16:47)
[2017-01-29] MEDS ORDERED: ONDANSETRON 2MG/ML, 2ML IVPush ONE (18:00)
[2017-01-29] MEDS ORDERED: ONDANSETRON 2MG/ML, 2ML ONE (18:02)
[2017-01-29] MEDS ORDERED: morphine SULFATE 10 MG/ML, 1ML ONE ×2 (18:02→19:45)
[2017-01-29] MEDS ORDERED: morphine SULFATE 10 MG/ML, 1ML IVPush ONE (19:00)
[2017-01-29] MEDS ORDERED: NITROGLYCERIN 0.4 MG/SPRAY SL PRN (19:30)
[2017-01-29] MEDS ORDERED: hydrALAzine 20 MG/ML, 1ML IVPush PRN (19:30)
[2017-01-29] MEDS ORDERED: morphine SULFATE 10 MG/ML, 1ML IVPush PRN (19:30)
[2017-01-29] MEDS ORDERED: NITROGLYCERIN 0.4 MG BOTTLE (25 TABS) SL PRN (19:30)
[2017-01-29] MEDS ORDERED: ENOXAPARIN 40 MG/0.4 ML SQ SCH (19:30)
[2017-01-29] MEDS ORDERED: ACETAMINOPHEN 325 MG TABLET PO PRN (19:30)
[2017-01-29] MEDS ORDERED: ONDANSETRON ODT 4 MG PO PRN (19:30)
[2017-01-29] MEDS ORDERED: ENOXAPARIN 40 MG/0.4 ML ONE (20:11)
[2017-01-29] MEDS ORDERED: ATORVASTATIN 80 MG TABLET PO SCH (21:00)
[2017-01-29] MEDS ORDERED: metFORMIN 500 MG TABLET PO SCH (21:00)
[2017-01-29 21:45] VITALS: BP 139/78
[2017-01-29] MEDS: LOSARTAN 50MG TABLET PO SCH (22:20)
[2017-01-29] MEDS: CARVEDILOL 3.125 MG TABLET PO SCH (22:20)
[2017-01-29 22:29] LABS: IS PT STATUS REG ER OR PRE ER? NO
[2017-01-30] MEDS ORDERED: D5%-0.45NACL+KCL 20MEQ 1,000 ML IV SCH
[2017-01-30 00:05] VITALS: BP 123/69
[2017-01-30 05:48] LABS: IS PT STATUS REG ER OR PRE ER? NO
[2017-01-30] MEDS ORDERED: PANTOPRAZOLE 20MG TABLET PO SCH (07:30)
[2017-01-30 07:51] VITALS: BP 135/70
[2017-01-30] MEDS: CARVEDILOL 3.125 MG TABLET PO SCH (07:59)
[2017-01-30] MEDS: LOSARTAN 50MG TABLET PO SCH (08:00)
[2017-01-30] MEDS ORDERED: SENNA/DOCUSATE TABLET PO SCH (09:00)
[2017-01-30] MEDS ORDERED: FERROUS SULFATE 325 MG TABLET PO SCH (09:00)
[2017-01-30] MEDS ORDERED: ASPIRIN 81 MG TABLET EC PO SCH (09:00)
[2017-01-30] MEDS ORDERED: FUROSEMIDE 20 MG TABLET PO SCH (09:00)
[2017-01-30] MEDS ORDERED: FLUTICASONE NASAL SPRAY 16GM NAS SCH (09:00)
[2017-01-30] MEDS ORDERED: ISOSORBIDE MONONITRATE ER 30 MG TABLET PO SCH (11:00)
[2017-01-30 12:13] VITALS: BP 151/74
[2017-01-31] MEDS ORDERED: D5%-0.45NACL+KCL 20MEQ 1,000 ML IV SCH
== END 2017-01-30 12:27 | disposition home or self-care (01) | DRG 391 ==
LOC: ED 16:55 → EDIP 18:48 → 5SO 21:44
PROVIDERS: ADMIT Family Medicine; ATTEND Family Medicine
PROC: 5A09357 Assistance with Respiratory Ventilation, Less than 24 Consecutive Hours, Continuous Positive Airway Pressure (ICD-10-PCS; principal; 2017-01-29)
DX: K21.9 Gastro-esophageal reflux disease without esophagitis (principal); I26.99 Other pulmonary embolism without acute cor pulmonale; I50.9 Heart failure, unspecified; I11.0 Hypertensive heart disease with heart failure; I27.20 Pulmonary hypertension, unspecified; R07.9 Chest pain, unspecified; I25.10 Atherosclerotic heart disease of native coronary artery without angina pectoris; E11.9 Type 2 diabetes mellitus without complications; E78.5 Hyperlipidemia, unspecified; G89.29 Other chronic pain; I25.5 Ischemic cardiomyopathy; I34.0 Nonrheumatic mitral (valve) insufficiency; Z66 Do not resuscitate; M54.9 Dorsalgia, unspecified; Z79.82 Long term (current) use of aspirin; I25.2 Old myocardial infarction; Z79.899 Other long term (current) drug therapy; Z91.041 Radiographic dye allergy status; Z95.5 Presence of coronary angioplasty implant and graft; Z90.49 Acquired absence of other specified parts of digestive tract; Z83.3 Family history of diabetes mellitus; Z82.49 Family history of ischemic heart disease and other diseases of the circulatory system
CPT/HCPCS: 36415; 71010; 78582; 80053; 83880; 84484; 85025; 85379; 85610; 93005; 94660; 96372; 96374; 96375; 96376; J1650; J2405; A9540; A9558; C9898; J2270; J3480

== ENCOUNTER 2017-01-31 16:17 | Observation (INO) | payer OTHER ==
[~2017-01-31] VITALS: Ht 188 cm; Wt 79.5 kg
[2017-01-31 17:02] LABS: HEMATOCRIT 36.8 % (39.2-51.8); HEMOGLOBIN 12.4 g/dL (13.7-18.0)
[2017-01-31 17:13] LABS: ASPARTATE AMINO TRANSFERASE 26 U/L (15-37); BLOOD UREA NITROGEN 27 mg/dL (7-18)
[2017-01-31 17:32] LABS: IS PT STATUS REG ER OR PRE ER? YES
[2017-01-31] MEDS ORDERED: morphine SULFATE 10 MG/ML, 1ML ONE (17:34)
[2017-01-31] MEDS ORDERED: morphine SULFATE 10 MG/ML, 1ML IVPush PRN (18:00)
[2017-01-31] MEDS ORDERED: ISOSORBIDE MONONITRATE ER 30 MG TABLET PO SCH (18:30)
[2017-01-31] MEDS ORDERED: ISOSORBIDE MONONITRATE ER 30 MG TABLET PO ONE (19:00)
[2017-01-31 19:25] VITALS: BP 124/76
[2017-01-31] MEDS ORDERED: ENALAPRILAT 1.25 MG/ML, 2ML IVPush PRN (19:30)
[2017-01-31] MEDS ORDERED: NITROGLYCERIN 0.4 MG/SPRAY SL PRN (19:30)
[2017-01-31] MEDS ORDERED: ACETAMINOPHEN 325 MG TABLET PO PRN (19:30)
[2017-01-31] MEDS: CARVEDILOL 3.125 MG TABLET PO SCH (21:58)
[2017-01-31] MEDS: HEPARIN 5,000 UNITS/ML, 1ML SQ SCH (21:58)
[2017-01-31] MEDS: LOSARTAN 50MG TABLET PO SCH (21:59)
[2017-01-31 23:45] LABS: IS PT STATUS REG ER OR PRE ER? NO
[2017-02-01] MEDS ORDERED: NITROGLYCERIN 0.4 MG/SPRAY SL PRN
[2017-02-01] MEDS ORDERED: NITROGLYCERIN 0.4 MG BOTTLE (25 TABS) SL ONE
[2017-02-01] MEDS ORDERED: NITROGLYCERIN 0.4 MG BOTTLE (25 TABS) SL PRN
[2017-02-01 00:07] VITALS: BP 128/53
[2017-02-01 00:29] VITALS: BP 101/55
[2017-02-01] MEDS ORDERED: morphine SULFATE 10 MG/ML, 1ML IVPush PRN (04:30)
[2017-02-01 05:46] LABS: HEMATOCRIT 33.3 % (39.2-51.8); HEMOGLOBIN 11.2 g/dL (13.7-18.0)
[2017-02-01 06:01] LABS: BLOOD UREA NITROGEN 27 mg/dL (7-18)
[2017-02-01 06:12] LABS: IS PT STATUS REG ER OR PRE ER? NO
[2017-02-01 07:59] VITALS: BP 113/75
[2017-02-01] MEDS: HEPARIN 5,000 UNITS/ML, 1ML SQ SCH ×3 (08:35→21:23)
[2017-02-01] MEDS: CARVEDILOL 3.125 MG TABLET PO SCH ×2 (08:38→21:23)
[2017-02-01] MEDS: LOSARTAN 50MG TABLET PO SCH ×2 (08:38→21:29)
[2017-02-01] MEDS: FLUTICASONE NASAL SPRAY 16GM NAS SCH (08:38)
[2017-02-01] MEDS: FERROUS SULFATE 325 MG TABLET PO SCH (08:39)
[2017-02-01] MEDS: ASPIRIN 81 MG TABLET EC PO SCH (08:39)
[2017-02-01] MEDS: OMEGA-3/FISH OIL CAPSULE PO SCH (08:39)
[2017-02-01] MEDS: CYANOCOBALAMIN 1,000 MCG TABLET PO SCH (08:40)
[2017-02-01] MEDS: SENNA/DOCUSATE TABLET PO SCH (08:40)
[2017-02-01] MEDS: OMEPRAZOLE 20 MG CAPSULE.DR PO SCH (08:40)
[2017-02-01] MEDS: CHOLECALCIFEROL 1,000 UNIT TABLET PO SCH (08:41)
[2017-02-01] MEDS: FUROSEMIDE 20 MG TABLET PO SCH (08:50)
[2017-02-01] MEDS ORDERED: TEMPLATE NON-FORMULARY MED. (Glucosamine Hcl** 1,500 MG) PO SCH (09:00)
[2017-02-01] MEDS ORDERED: ISOSORBIDE MONONITRATE ER 30 MG TABLET PO ONE (09:00)
[2017-02-01] MEDS ORDERED: ISOSORBIDE MONONITRATE ER 30 MG TABLET PO SCH ×2 (09:00)
[2017-02-01 14:17] VITALS: BP 125/67
[2017-02-01] MEDS ORDERED: MIDAZOLAM 1 MG/ML, 5ML ONE (14:44)
[2017-02-01] MEDS ORDERED: FENTANYL PF 100 MCG/2ML ONE (14:44)
[2017-02-01] MEDS ORDERED: HEPARIN 1,000 UNITS/ML, 10ML ONE (14:45)
[2017-02-01] MEDS ORDERED: VERAPAMIL 2.5 MG/ML, 2ML ONE (14:45)
[2017-02-01] MEDS ORDERED: LIDOCAINE 2%, 20ML ONE (14:45)
[2017-02-01] MEDS ORDERED: TICAGRELOR 90 MG TABLET ONE (14:45)
[2017-02-01] MEDS ORDERED: BIVALIRUDIN 250 MG ONE (14:45)
[2017-02-01] MEDS ORDERED: SODIUM CHLORIDE 0.9% 1,000 ML IV SCH ×2 (15:00→15:24)
[2017-02-01] MEDS: FAMOTIDINE 20 MG TABLET PO SCH ×2 (15:05→21:23)
[2017-02-01] MEDS: DIPHENHYDRAMINE 50 MG CAPSULE PO SCH ×2 (15:05→21:29)
[2017-02-01] MEDS ORDERED: methylPREDNISolone SOD SUCC 125 MG/2 ML ONE (15:32)
[2017-02-01] MEDS ORDERED: DIPHENHYDRAMINE 50 MG/ML, 1ML ONE (15:35)
[2017-02-01] MEDS: SODIUM CHLORIDE 0.9% 1,000 ML IV SCH ×2 (16:12→17:49)
[2017-02-01 19:46] VITALS: BP 122/71
[2017-02-02 01:07] VITALS: BP 123/69
[2017-02-02] MEDS: HEPARIN 5,000 UNITS/ML, 1ML SQ SCH ×2 (04:15→10:34)
[2017-02-02 06:38] VITALS: BP 149/80
[2017-02-02] MEDS ORDERED: ISOSORBIDE MONONITRATE ER 60 MG TABLET PO SCH (09:00)
[2017-02-02] MEDS: FLUTICASONE NASAL SPRAY 16GM NAS SCH (10:31)
[2017-02-02] MEDS: FUROSEMIDE 20 MG TABLET PO SCH (10:32)
[2017-02-02] MEDS: LOSARTAN 50MG TABLET PO SCH (10:32)
[2017-02-02] MEDS: OMEGA-3/FISH OIL CAPSULE PO SCH (10:32)
[2017-02-02] MEDS: FERROUS SULFATE 325 MG TABLET PO SCH (10:32)
[2017-02-02] MEDS: CHOLECALCIFEROL 1,000 UNIT TABLET PO SCH (10:32)
[2017-02-02] MEDS: OMEPRAZOLE 20 MG CAPSULE.DR PO SCH (10:33)
[2017-02-02] MEDS: SENNA/DOCUSATE TABLET PO SCH (10:33)
[2017-02-02] MEDS: CYANOCOBALAMIN 1,000 MCG TABLET PO SCH (10:33)
[2017-02-02] MEDS: ASPIRIN 81 MG TABLET EC PO SCH (10:33)
[2017-02-02 12:43] VITALS: BP 137/65
[2017-02-02] MEDS ORDERED: ISOS60TA36 PO (13:56)
[2017-02-02] MEDS ORDERED: CARV6.2512 PO (13:56)
[2017-02-02] MEDS ORDERED: CARVEDILOL 6.25 MG TABLET PO SCH (21:00)
== END 2017-02-02 17:20 | disposition home or self-care (01) ==
LOC: ED 18:33 → EDIP 18:34 → INTOOBSV 18:34 → ED 18:38 → 5SO 19:03
PROVIDERS: ADMIT Family Medicine; ATTEND Family Medicine
DX: I25.810 Atherosclerosis of coronary artery bypass graft(s) without angina pectoris (principal); I25.5 Ischemic cardiomyopathy; I11.0 Hypertensive heart disease with heart failure; I50.9 Heart failure, unspecified; E78.5 Hyperlipidemia, unspecified; K21.9 Gastro-esophageal reflux disease without esophagitis; G47.33 Obstructive sleep apnea (adult) (pediatric); I25.2 Old myocardial infarction; G89.29 Other chronic pain; M54.9 Dorsalgia, unspecified; I27.20 Pulmonary hypertension, unspecified; Z82.49 Family history of ischemic heart disease and other diseases of the circulatory system; Z79.899 Other long term (current) drug therapy
CPT/HCPCS: 36415; 71010; 80048; 80053; 84484; 85025; 85610; 93005; 93306; 93454; 93571; 96372; 96374; 96376; 97163; 97530; 99156; 99157; 99285; C1769; C1894; G0378; G8978; G8979; G8980; J1200; J1644; J2250; J2270; J2930; J3010; J3490; J7030; J7512; Q9967; 96361; J0583

== ENCOUNTER 2017-02-23 15:33 | Emergency (ER) | payer OTHER ==
[~2017-02-23] VITALS: Ht 188 cm; Wt 75.0 kg
[~2017-02-23 15:33] MED LIST changes: +CARV6.2512 PO; +ISOS60TA36 PO
[2017-02-23] MEDS ORDERED: MORPHINE SULFATE 4 MG/ML, 1ML ONE ×2 (16:12→17:48)
[2017-02-23] MEDS ORDERED: ASPIRIN 81 MG TABLET CHEW ONE (16:12)
[2017-02-23 16:29] LABS: HEMATOCRIT 34.6 % (39.2-51.8); HEMOGLOBIN 11.7 g/dL (13.7-18.0); WHITE BLOOD COUNT 6.1 x10^3/uL (3.4-10)
[2017-02-23] MEDS ORDERED: SODIUM CHLORIDE FLUSH 10ML SYR IVF ONE (16:30)
[2017-02-23] MEDS ORDERED: MORPHINE SULFATE 4 MG/ML, 1ML IVPush PRN (16:30)
[2017-02-23] MEDS ORDERED: ASPIRIN 81 MG TABLET CHEW PO ONE (16:30)
[2017-02-23 16:42] LABS: BLOOD UREA NITROGEN 30 mg/dL (7-18)
[2017-02-23] MEDS ORDERED: MAALOX/HYOSCYAMINE/LIDOCAINE 45 ML BTL ONE (16:44)
[2017-02-23 16:48] LABS: ASPARTATE AMINO TRANSFERASE 17 U/L (15-37); IS PT STATUS REG ER OR PRE ER? YES
[2017-02-23] MEDS ORDERED: MAALOX/HYOSCYAMINE/LIDOCAINE 45 ML BTL PO ONE (17:00)
[2017-02-23 17:45] VITALS: BP 121/54
== END 2017-02-23 18:50 | disposition home or self-care (01) ==
LOC: ED 17:43
DX: R07.2 Precordial pain (principal); R06.00 Dyspnea, unspecified; I11.0 Hypertensive heart disease with heart failure; I50.9 Heart failure, unspecified; E11.9 Type 2 diabetes mellitus without complications; E78.5 Hyperlipidemia, unspecified; K21.9 Gastro-esophageal reflux disease without esophagitis; I25.2 Old myocardial infarction; I25.10 Atherosclerotic heart disease of native coronary artery without angina pectoris
CPT/HCPCS: 36415; 71010; 80053; 83880; 84484; 85025; 85610; 85730; 93005; 96374

== ENCOUNTER 2017-03-09 13:17 | Emergency (ER) | payer OTHER ==
[~2017-03-09] VITALS: Ht 186.7 cm; Wt 82.1 kg
[2017-03-09] MEDS ORDERED: ONDANSETRON 2MG/ML, 2ML IVPush ONE (14:30)
[2017-03-09] MEDS ORDERED: SODIUM CHLORIDE FLUSH 10ML SYR IVF ONE (14:30)
[2017-03-09] MEDS ORDERED: MORPHINE SULFATE 4 MG/ML, 1ML IVPush PRN (14:30)
[2017-03-09 14:32] LABS: BASOPHILS % (AUTO) 0 % (0-1); EOSINOPHILS # (AUTO) 0.03 x10^3/uL (0-0.4); EOSINOPHILS % (AUTO) 1 % (1-7); LYMPHOCYTES % (AUTO) 12 % (22-44); MD NO; MEAN CORPUSCULAR HEMOGLOBIN 30.1 pg (27.5-34.5); MEAN CORPUSCULAR HGB CONC 33.8 g/dL (33.2-36.2); MEAN PLATELET VOLUME 7.1 fL (7.4-10.4); MONOCYTES # (AUTO) 0.46 x10^3/uL (0.2-0.8); MONOCYTES % (AUTO) 9 % (2-9); NEUTROPHILS % (AUTO) 78 % (42-75); PLATELET COUNT 169 x10^3/uL (130-400); RED BLOOD COUNT 3.78 x10^6/uL (4.38-5.82); RED CELL DISTRIBUTION WIDTH 15.2 % (9.4-14.8)
[2017-03-09] MEDS ORDERED: ONDANSETRON 2MG/ML, 2ML ONE (14:37)
[2017-03-09] MEDS ORDERED: MORPHINE SULFATE 4 MG/ML, 1ML ONE (14:37)
[2017-03-09 14:38] LABS: ALBUMIN 3.4 g/dL (3.4-5.0); ANION GAP 6 mmol/L (5-15); CALCIUM 8.3 mg/dL (8.5-10.1); CHLORIDE 104 mmol/L (98-107); CREATININE 0.88 mg/dL (0.7-1.3)
[2017-03-09 14:42] LABS: TROPONIN I 0.018 ng/mL (0.000-0.045)
[2017-03-09 15:17] LABS: INTERNATIONAL NORMALIZED RATIO 0.98 (0.93-1.1); PROTHROMBIN TIME 10.2 Seconds (9.6-11.5)
[2017-03-09 16:36] VITALS: BP 129/78
== END 2017-03-09 17:16 | disposition home or self-care (01) ==
LOC: ED 14:56
DX: R07.89 Other chest pain (principal); E11.9 Type 2 diabetes mellitus without complications; I25.10 Atherosclerotic heart disease of native coronary artery without angina pectoris; I11.0 Hypertensive heart disease with heart failure; I50.9 Heart failure, unspecified; I25.2 Old myocardial infarction; Z90.49 Acquired absence of other specified parts of digestive tract; K21.9 Gastro-esophageal reflux disease without esophagitis; Z95.5 Presence of coronary angioplasty implant and graft
CPT/HCPCS: 36415; 71045; 80048; 82040; 84484; 85025; 85610; 85730; 93005; 96374; 96375; 99285; J2405

== ENCOUNTER → 2017-05-31 | Outpatient (CLI) | payer OTHER ==
[~2017-05-31] MED LIST changes: +ATOR40TA78 PO; -GLUC1500 PO; +GLUC15006 PO
== END | disposition home or self-care (01) ==
LOC: RAD 15:29 → EDSTATUS 16:30
PROVIDERS: ATTEND Urology
DX: N28.1 Cyst of kidney, acquired (principal)
CPT/HCPCS: 76770

== ENCOUNTER 2017-08-25 16:49 | Inpatient (IN) | payer OTHER ==
[~2017-08-25] VITALS: Ht 188 cm; Wt 80.8 kg
[~2017-08-25 16:49] MED LIST changes: -METF500T4 PO; +METF500T5 PO
[2017-08-25] MEDS ORDERED: FURO-93 PO (17:50)
[2017-08-25] MEDS ORDERED: CARV12.52 PO (17:50)
[2017-08-25 17:57] LABS: BASOPHILS # (AUTO) 0.01 x10^3/uL (0-0.1); BASOPHILS % (AUTO) 0 % (0-1); EOSINOPHILS # (AUTO) 0.13 x10^3/uL (0-0.4); EOSINOPHILS % (AUTO) 2 % (1-7); LYMPHOCYTES % (AUTO) 10 % (22-44); MD NO; MEAN CORPUSCULAR HEMOGLOBIN 27.7 pg (27.5-34.5); MEAN CORPUSCULAR HGB CONC 33.4 g/dL (33.2-36.2); MEAN PLATELET VOLUME 7.4 fL (7.4-10.4); MONOCYTES # (AUTO) 0.95 x10^3/uL (0.2-0.8); MONOCYTES % (AUTO) 12 % (2-9); NEUTROPHILS # (AUTO) 6.14 x10^3/uL (1.8-6.8); NEUTROPHILS % (AUTO) 76 % (42-75); PLATELET COUNT 232 x10^3/uL (130-400); RED BLOOD COUNT 3.83 x10^6/uL (4.38-5.82); RED CELL DISTRIBUTION WIDTH 16.6 % (9.4-14.8)
[2017-08-25] MEDS ORDERED: SODIUM CHLORIDE FLUSH 10ML SYR IVF ONE (18:00)
[2017-08-25 18:02] LABS: INTERNATIONAL NORMALIZED RATIO 1.04 (0.93-1.1); PROTHROMBIN TIME 10.7 Seconds (9.6-11.5)
[2017-08-25 18:05] LABS: ALANINE AMINOTRANSFERASE 23 U/L (12-78); ANION GAP 6 mmol/L (5-15); CALCIUM 7.9 mg/dL (8.5-10.1); CHLORIDE 105 mmol/L (98-107); CREATININE 0.94 mg/dL (0.7-1.3)
[2017-08-25 18:09] LABS: ALKALINE PHOSPHATASE 90 U/L (45-117); BILIRUBIN,TOTAL 0.5 mg/dL (0.2-1.0); TOTAL PROTEIN 7.2 g/dL (6.4-8.2); TROPONIN I < 0.015 ng/mL (0.000-0.045)
[2017-08-25 18:59] LABS: MICROSCOPIC NOT IND
[2017-08-25 19:01] LABS: CULTURE INDICATED? NO
[2017-08-25] MEDS ORDERED: SODIUM CHLORIDE FLUSH 10ML SYR IVF PRN (20:00)
[2017-08-25] MEDS ORDERED: ONDANSETRON 2MG/ML, 2ML IVPush PRN (20:30)
[2017-08-25] MEDS ORDERED: BISACODYL 10 MG SUPP PR PRN (20:30)
[2017-08-25] MEDS ORDERED: NS + 20MEQ KCL 1,000 ML IV ONE (20:30)
[2017-08-25 20:43] VITALS: BP 168/98
[2017-08-25] MEDS: ATORVASTATIN 40 MG TABLET PO SCH (21:09)
[2017-08-25] MEDS: HEPARIN 5,000 UNITS/ML, 1ML SQ SCH (21:09)
[2017-08-25] MEDS: CARVEDILOL 12.5 MG TABLET PO SCH (21:10)
[2017-08-25] MEDS: LOSARTAN 50MG TABLET PO SCH (21:10)
[2017-08-26] MEDS ORDERED: DIPHENHYDRAMINE 50 MG CAPSULE PO PRN (01:30)
[2017-08-26 01:59] VITALS: BP 147/89
[2017-08-26] MEDS: HEPARIN 5,000 UNITS/ML, 1ML SQ SCH ×3 (04:36→20:29)
[2017-08-26 05:27] LABS: ANION GAP 6 mmol/L (5-15); CALCIUM 8.1 mg/dL (8.5-10.1); CHLORIDE 105 mmol/L (98-107)
[2017-08-26 05:33] LABS: BASOPHILS # (AUTO) 0.01 x10^3/uL (0-0.1); BASOPHILS % (AUTO) 0 % (0-1); EOSINOPHILS # (AUTO) 0.11 x10^3/uL (0-0.4); EOSINOPHILS % (AUTO) 2 % (1-7); LYMPHOCYTES # (AUTO) 0.88 x10^3/uL (1-3.4); LYMPHOCYTES % (AUTO) 13 % (22-44); MD NO; MEAN CORPUSCULAR HEMOGLOBIN 28.1 pg (27.5-34.5); MEAN CORPUSCULAR HGB CONC 33.9 g/dL (33.2-36.2); MEAN CORPUSCULAR VOLUME 82.9 fL (81-97); MEAN PLATELET VOLUME 7.8 fL (7.4-10.4); MONOCYTES # (AUTO) 0.77 x10^3/uL (0.2-0.8); MONOCYTES % (AUTO) 11 % (2-9); NEUTROPHILS # (AUTO) 5.21 x10^3/uL (1.8-6.8); NEUTROPHILS % (AUTO) 75 % (42-75); PLATELET COUNT 201 x10^3/uL (130-400); RED CELL DISTRIBUTION WIDTH 16.9 % (9.4-14.8)
[2017-08-26 05:38] LABS: CREATININE 1.11 mg/dL (0.7-1.3); THYROID STIMULATING HORMONE 0.379 mIU/L (0.358-3.740)
[2017-08-26 08:13] VITALS: BP 156/86
[2017-08-26] MEDS: SENNA/DOCUSATE TABLET PO SCH (08:30)
[2017-08-26] MEDS: ASPIRIN 81 MG TABLET EC PO SCH (08:30)
[2017-08-26] MEDS: FERROUS SULFATE 325 MG TABLET PO SCH (08:30)
[2017-08-26] MEDS: LOSARTAN 50MG TABLET PO SCH ×2 (08:30→20:29)
[2017-08-26] MEDS: CHOLECALCIFEROL 1,000 UNIT TABLET PO SCH (08:30)
[2017-08-26] MEDS: OMEPRAZOLE 20 MG CAPSULE.DR PO SCH (08:30)
[2017-08-26] MEDS: FUROSEMIDE 20 MG TABLET PO SCH (08:30)
[2017-08-26] MEDS: CARVEDILOL 12.5 MG TABLET PO SCH (08:31)
[2017-08-26] MEDS: ISOSORBIDE MONONITRATE ER 60 MG TABLET PO SCH (08:31)
[2017-08-26] MEDS ORDERED: CARVEDILOL 12.5 MG TABLET PO SCH ×2 (09:00→18:00)
[2017-08-26 10:33] VITALS: BP 106/58
[2017-08-26] MEDS: ACETAMINOPHEN 325 MG TABLET PO PRN ×2 (10:33→14:58)
[2017-08-26 14:54] VITALS: BP 112/58
[2017-08-26] MEDS ORDERED: TAMS0.4C2 PO (16:03)
[2017-08-26] MEDS ORDERED: ACET325T14 PO (16:03)
[2017-08-26] MEDS ORDERED: CARVEDILOL 12.5 MG TABLET ONE (18:34)
[2017-08-26 18:36] VITALS: BP 130/64
[2017-08-26] MEDS: CARVEDILOL 6.25 MG TABLET PO SCH (18:45)
[2017-08-26 20:24] VITALS: BP 149/80
[2017-08-26] MEDS: ATORVASTATIN 40 MG TABLET PO SCH (20:29)
[2017-08-26] MEDS ORDERED: TRAZODONE 50MG TABLET PO PRN (21:00)
[2017-08-27 02:50] VITALS: BP 128/68
[2017-08-27] MEDS: HEPARIN 5,000 UNITS/ML, 1ML SQ SCH ×2 (04:59→12:49)
[2017-08-27 05:09] VITALS: BP 136/85
[2017-08-27] MEDS: CARVEDILOL 6.25 MG TABLET PO SCH (05:12)
[2017-08-27] MEDS ORDERED: CARVEDILOL 12.5 MG TABLET PO SCH (06:00)
[2017-08-27 08:30] VITALS: BP 148/74
[2017-08-27] MEDS: FERROUS SULFATE 325 MG TABLET PO SCH (09:45)
[2017-08-27] MEDS: ISOSORBIDE MONONITRATE ER 60 MG TABLET PO SCH (09:45)
[2017-08-27] MEDS: SENNA/DOCUSATE TABLET PO SCH (09:45)
[2017-08-27] MEDS: FUROSEMIDE 20 MG TABLET PO SCH (09:46)
[2017-08-27] MEDS: LOSARTAN 50MG TABLET PO SCH (09:46)
[2017-08-27] MEDS: CHOLECALCIFEROL 1,000 UNIT TABLET PO SCH (09:47)
[2017-08-27] MEDS: ASPIRIN 81 MG TABLET EC PO SCH (09:47)
[2017-08-27] MEDS: OMEPRAZOLE 20 MG CAPSULE.DR PO SCH (09:48)
[2017-08-27] MEDS: ACETAMINOPHEN 325 MG TABLET PO PRN (11:37)
[2017-08-27] MEDS ORDERED: CARV6.2512 PO (14:06)
== END 2017-08-27 16:30 | disposition home or self-care (01) | DRG 307 ==
LOC: ED 18:38 → EDIP 19:42 → 5SO 20:27
PROVIDERS: ADMIT Family Medicine; ATTEND Family Medicine
DX: I34.0 Nonrheumatic mitral (valve) insufficiency (principal); I50.40 Unspecified combined systolic (congestive) and diastolic (congestive) heart failure; R53.83 Other fatigue; I49.1 Atrial premature depolarization; I25.5 Ischemic cardiomyopathy; I49.3 Ventricular premature depolarization; D64.9 Anemia, unspecified; E86.0 Dehydration; E78.5 Hyperlipidemia, unspecified; I11.0 Hypertensive heart disease with heart failure; I25.10 Atherosclerotic heart disease of native coronary artery without angina pectoris; I35.1 Nonrheumatic aortic (valve) insufficiency; R79.89 Other specified abnormal findings of blood chemistry; K21.9 Gastro-esophageal reflux disease without esophagitis; Z66 Do not resuscitate; G47.00 Insomnia, unspecified; I25.2 Old myocardial infarction; Z87.01 Personal history of pneumonia (recurrent); Z95.5 Presence of coronary angioplasty implant and graft; Z90.49 Acquired absence of other specified parts of digestive tract; Z91.041 Radiographic dye allergy status; E11.9 Type 2 diabetes mellitus without complications
CPT/HCPCS: 0399T; 36415; 71045; 80048; 80053; 81003; 83735; 84443; 84484; 85025; 85610; 85730; 93005; 93306; 99285; J1644; J3480

== ENCOUNTER 2017-10-04 14:17 | Observation (INO) | payer OTHER ==
[~2017-10-04] VITALS: Ht 188 cm; Wt 82.4 kg
[~2017-10-04 14:17] MED LIST changes: +ACET325T14 PO; -SIMV80TA3 PO; +SIMV80TA7 PO; +TAMS0.4C2 PO
[2017-10-04] MEDS ORDERED: ASPIRIN 81 MG TABLET CHEW PO ONE (15:00)
[2017-10-04] MEDS ORDERED: SODIUM CHLORIDE FLUSH 10ML SYR IVF ONE (15:00)
[2017-10-04 15:15] LABS: BASOPHILS # (AUTO) 0.02 x10^3/uL (0-0.1); BASOPHILS % (AUTO) 0 % (0-1); EOSINOPHILS # (AUTO) 0.11 x10^3/uL (0-0.4); EOSINOPHILS % (AUTO) 2 % (1-7); LYMPHOCYTES # (AUTO) 0.89 x10^3/uL (1-3.4); LYMPHOCYTES % (AUTO) 16 % (22-44); MD NO; MEAN CORPUSCULAR HEMOGLOBIN 26.9 pg (27.5-34.5); MEAN CORPUSCULAR HGB CONC 32.8 g/dL (33.2-36.2); MEAN PLATELET VOLUME 7.9 fL (7.4-10.4); MONOCYTES # (AUTO) 0.54 x10^3/uL (0.2-0.8); MONOCYTES % (AUTO) 10 % (2-9); NEUTROPHILS # (AUTO) 4.07 x10^3/uL (1.8-6.8); NEUTROPHILS % (AUTO) 72 % (42-75); PLATELET COUNT 170 x10^3/uL (130-400); RED BLOOD COUNT 4.03 x10^6/uL (4.38-5.82)
[2017-10-04 15:23] LABS: ALANINE AMINOTRANSFERASE 27 U/L (12-78); ALBUMIN 3.3 g/dL (3.4-5.0); ANION GAP 9 mmol/L (5-15); CALCIUM 8.3 mg/dL (8.5-10.1); CHLORIDE 107 mmol/L (98-107); CREATININE 0.89 mg/dL (0.7-1.3)
[2017-10-04 15:27] LABS: ALKALINE PHOSPHATASE 67 U/L (45-117); BILIRUBIN,TOTAL 0.6 mg/dL (0.2-1.0); TOTAL PROTEIN 7.2 g/dL (6.4-8.2); TROPONIN I 0.016 ng/mL (0.000-0.045)
[2017-10-04 16:08] LABS: INTERNATIONAL NORMALIZED RATIO 1.06 (0.93-1.1); PROTHROMBIN TIME 10.9 Seconds (9.6-11.5)
[2017-10-04 19:10] VITALS: BP 155/87
[2017-10-04 19:11] VITALS: BP 155/74
[2017-10-04] MEDS ORDERED: POTASSIUM CHLORIDE 40 MEQ in SODIUM CHLORIDE 0.9% 500 ML IV ONE (19:30)
[2017-10-04] MEDS ORDERED: ENALAPRILAT 1.25 MG/ML, 2ML IVPush PRN (19:30)
[2017-10-04] MEDS ORDERED: FUROSEMIDE 20 MG/2 ML IV ONE (19:30)
[2017-10-04] MEDS ORDERED: LABETALOL 5MG/ML, 20ML IVPush PRN (19:30)
[2017-10-04] MEDS: LOSARTAN 50MG TABLET PO SCH (20:53)
[2017-10-04] MEDS: HEPARIN 5,000 UNITS/ML, 1ML SQ SCH (20:53)
[2017-10-04] MEDS ORDERED: ATORVASTATIN 40 MG TABLET PO SCH (21:00)
[2017-10-05 00:30] VITALS: BP 158/95
[2017-10-05 05:33] LABS: BASOPHILS # (AUTO) 0.04 x10^3/uL (0-0.1); BASOPHILS % (AUTO) 1 % (0-1); EOSINOPHILS # (AUTO) 0.13 x10^3/uL (0-0.4); EOSINOPHILS % (AUTO) 2 % (1-7); LYMPHOCYTES # (AUTO) 0.92 x10^3/uL (1-3.4); LYMPHOCYTES % (AUTO) 12 % (22-44); MD NO; MEAN CORPUSCULAR HEMOGLOBIN 27.8 pg (27.5-34.5); MEAN CORPUSCULAR HGB CONC 33.5 g/dL (33.2-36.2); MEAN CORPUSCULAR VOLUME 82.8 fL (81-97); MONOCYTES # (AUTO) 0.85 x10^3/uL (0.2-0.8); MONOCYTES % (AUTO) 11 % (2-9); NEUTROPHILS # (AUTO) 5.84 x10^3/uL (1.8-6.8); NEUTROPHILS % (AUTO) 75 % (42-75); PLATELET COUNT 148 x10^3/uL (130-400); RED BLOOD COUNT 3.97 x10^6/uL (4.38-5.82); RED CELL DISTRIBUTION WIDTH 18.5 % (9.4-14.8)
[2017-10-05 05:44] LABS: ANION GAP 8 mmol/L (5-15); CALCIUM 8.2 mg/dL (8.5-10.1); CHLORIDE 104 mmol/L (98-107)
[2017-10-05] MEDS ORDERED: CARVEDILOL 12.5 MG TABLET PO SCH (06:00)
[2017-10-05] MEDS: HEPARIN 5,000 UNITS/ML, 1ML SQ SCH ×2 (06:04→13:00)
[2017-10-05 07:55] VITALS: BP 144/75
[2017-10-05] MEDS ORDERED: POTASSIUM CHLORIDE 20 MEQ PACKET PO SCH (08:00)
[2017-10-05] MEDS: LOSARTAN 50MG TABLET PO SCH (08:54)
[2017-10-05] MEDS ORDERED: OMEPRAZOLE 20 MG CAPSULE.DR PO SCH (09:00)
[2017-10-05] MEDS ORDERED: FERROUS SULFATE 325 MG TABLET PO SCH (09:00)
[2017-10-05] MEDS ORDERED: ASPIRIN 81 MG TABLET EC PO SCH (09:00)
[2017-10-05] MEDS ORDERED: TAMSULOSIN 0.4 MG CAP.ER.24H PO SCH (09:00)
[2017-10-05] MEDS ORDERED: ISOSORBIDE MONONITRATE ER 60 MG TABLET PO SCH (09:00)
[2017-10-05] MEDS ORDERED: FLUTICASONE NASAL SPRAY 16GM NAS SCH (09:00)
[2017-10-05] MEDS ORDERED: SENNA/DOCUSATE TABLET PO SCH (09:00)
[2017-10-05] MEDS ORDERED: FUROSEMIDE 20 MG TABLET PO SCH (09:00)
[2017-10-05] MEDS ORDERED: CHOLECALCIFEROL 1,000 UNIT TABLET PO SCH (09:00)
[2017-10-05] MEDS ORDERED: OMEGA-3/FISH OIL CAPSULE PO SCH (09:00)
[2017-10-05] MEDS ORDERED: POTASSIUM CHLORIDE 20 MEQ TAB.ER.PRT PO ONE (13:00)
[2017-10-05 13:43] VITALS: BP 124/72
== END 2017-10-05 16:25 | disposition home or self-care (01) ==
LOC: ED 15:13 → INTOOBSV 17:12 → EDIP 17:12 → 5SO 18:50
PROVIDERS: ADMIT Family Medicine; ATTEND Family Medicine
DX: I11.0 Hypertensive heart disease with heart failure (principal); I50.31 Acute diastolic (congestive) heart failure; I25.10 Atherosclerotic heart disease of native coronary artery without angina pectoris; R06.00 Dyspnea, unspecified; E11.9 Type 2 diabetes mellitus without complications; E87.6 Hypokalemia; D64.9 Anemia, unspecified; G47.33 Obstructive sleep apnea (adult) (pediatric); I25.2 Old myocardial infarction; E78.5 Hyperlipidemia, unspecified; J44.9 Chronic obstructive pulmonary disease, unspecified; Z87.442 Personal history of urinary calculi; Z95.5 Presence of coronary angioplasty implant and graft
CPT/HCPCS: 36415; 71045; 80048; 80053; 83880; 84484; 85025; 85610; 86850; 86900; 93005; 94660; 96365; 96366; 96372; 96375; 99285; G0378; J1644; J1940; J3480; J7040

== ENCOUNTER 2017-12-27 13:35 | Emergency (ER) | payer OTHER ==
[~2017-12-27] VITALS: Ht 188 cm; Wt 86.3 kg
[~2017-12-27 13:35] MED LIST changes: -LOSA50TA6 PO; +LOSA50TA7 PO; +METF500T17 PO; -METF500T5 PO; -SENN1TAB7 PO; +SENN1TAB8 PO
[2017-12-27 13:49] VITALS: BP 135/70
[2017-12-27] MEDS ORDERED: ACETAMINOPHEN 500 MG TABLET PO ONE (15:00)
[2017-12-27] MEDS ORDERED: ACETAMINOPHEN 500 MG TABLET ONE (15:08)
== END 2017-12-27 16:24 | disposition home or self-care (01) ==
LOC: ED 16:00
DX: S83.422A Sprain of lateral collateral ligament of left knee, initial encounter (principal); W01.0XXA Fall on same level from slipping, tripping and stumbling without subsequent striking against object, initial encounter; G89.11 Acute pain due to trauma; M25.562 Pain in left knee; Y93.89 Activity, other specified; Y99.8 Other external cause status; Y92.009 Unspecified place in unspecified non-institutional (private) residence as the place of occurrence of the external cause
CPT/HCPCS: 29505; 99284

== ENCOUNTER 2018-03-17 16:27 | Emergency (ER) | payer OTHER ==
[~2018-03-17] VITALS: Ht 188 cm; Wt 83.1 kg
[2018-03-17] MEDS ORDERED: SODIUM CHLORIDE FLUSH 10ML SYR IVF ONE ×2 (17:00→18:30)
[2018-03-17 17:16] LABS: BASOPHILS # (AUTO) 0.02 x10^3/uL (0-0.1); BASOPHILS % (AUTO) 0 % (0-1); EOSINOPHILS # (AUTO) 0.08 x10^3/uL (0-0.4); EOSINOPHILS % (AUTO) 2 % (1-7); LYMPHOCYTES # (AUTO) 0.73 x10^3/uL (1-3.4); LYMPHOCYTES % (AUTO) 18 % (22-44); MD NO; MEAN CORPUSCULAR HEMOGLOBIN 29.4 pg (27.5-34.5); MEAN CORPUSCULAR HGB CONC 34.3 g/dL (33.2-36.2); MEAN CORPUSCULAR VOLUME 85.5 fL (81-97); MEAN PLATELET VOLUME 7.8 fL (7.4-10.4); MONOCYTES # (AUTO) 0.32 x10^3/uL (0.2-0.8); MONOCYTES % (AUTO) 8 % (2-9); NEUTROPHILS % (AUTO) 72 % (42-75); PLATELET COUNT 132 x10^3/uL (130-400); RED BLOOD COUNT 3.97 x10^6/uL (4.38-5.82); RED CELL DISTRIBUTION WIDTH 16.5 % (9.4-14.8)
[2018-03-17 17:29] LABS: ALANINE AMINOTRANSFERASE 17 U/L (12-78); ANION GAP 7 mmol/L (5-15); CALCIUM 8.8 mg/dL (8.5-10.1); CHLORIDE 106 mmol/L (98-107)
[2018-03-17 17:34] LABS: ALKALINE PHOSPHATASE 68 U/L (45-117); BILIRUBIN,TOTAL 0.7 mg/dL (0.2-1.0); CREATININE 1.12 mg/dL (0.7-1.3); TROPONIN I < 0.015 ng/mL (0.000-0.045)
--- NOTE | 2018-03-17 18:46 | NUR ---
PT RESTING IN GURNEY. RR EVEN AND UNLABORED. 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 WAITING FOR US.
[2018-03-17 18:50] VITALS: BP 142/76
--- NOTE | 2018-03-17 18:50 | NUR ---
US AT BEDSIDE
[2018-03-17] MEDS ORDERED: MORPHINE SULFATE 4 MG/ML, 1ML IVPush ONE (19:30)
--- NOTE | 2018-03-17 19:34 | NUR ---
PT REQUESTING PAIN MEDS, DR. JERONIMO NOTIFIED
[2018-03-17] MEDS ORDERED: MORPHINE SULFATE 4 MG/ML, 1ML ONE (20:00)
--- NOTE | 2018-03-17 20:15 | NUR ---
PT STATES HE FEELS BETTER AND DOES NOT NEED TO BE ADMITTED. DR JERONIMO NOTIFIED
== END 2018-03-17 20:27 | disposition home or self-care (01) ==
LOC: ED 19:37
DX: N28.1 Cyst of kidney, acquired (principal); G89.29 Other chronic pain; R42 Dizziness and giddiness; K21.9 Gastro-esophageal reflux disease without esophagitis; I50.9 Heart failure, unspecified; E11.9 Type 2 diabetes mellitus without complications; E78.5 Hyperlipidemia, unspecified; I25.2 Old myocardial infarction; I25.10 Atherosclerotic heart disease of native coronary artery without angina pectoris; I11.0 Hypertensive heart disease with heart failure
CPT/HCPCS: 36415; 70450; 71045; 76700; 80053; 84484; 85025; 93005; 99284

== ENCOUNTER 2018-03-27 10:41 | Emergency (ER) | payer MEDICARE, OTHER ==
[~2018-03-27] VITALS: Ht 188 cm; Wt 78.0 kg
[~2018-03-27 10:41] MED LIST changes: +LOSA50TA14 PO; -LOSA50TA7 PO; +SIMV80TA18 PO; -SIMV80TA7 PO
--- NOTE | 2018-03-27 10:51 | NUR ---
PT BIB [facility] FOR ABD PAIN AND CONSTIPATION. LAST BM YESTERDAY. REPORTS DIZZINESS AND WEAKNESS. PT GIVEN 4 MG ORAL ZOFRAN. PT REFUSED IV. BP 157/89, HR 80s NS WITH PVCs, FS 189, 95% RA. PT IS ALERT, ORIENTED, WITH NAD. PT IS CONNECTED TO THE MONITOR. CALL LIGHT WITHIN REACH.
[2018-03-27 11:11] LABS: BASOPHILS # (AUTO) 0.02 x10^3/uL (0-0.1); BASOPHILS % (AUTO) 0 % (0-1); EOSINOPHILS # (AUTO) 0.05 x10^3/uL (0-0.4); EOSINOPHILS % (AUTO) 1 % (1-7); LYMPHOCYTES # (AUTO) 0.58 x10^3/uL (1-3.4); LYMPHOCYTES % (AUTO) 8 % (22-44); MD NO; MEAN CORPUSCULAR HEMOGLOBIN 29.4 pg (27.5-34.5); MEAN CORPUSCULAR HGB CONC 33.8 g/dL (33.2-36.2); MEAN CORPUSCULAR VOLUME 86.8 fL (81-97); MEAN PLATELET VOLUME 7.7 fL (7.4-10.4); MONOCYTES # (AUTO) 0.44 x10^3/uL (0.2-0.8); MONOCYTES % (AUTO) 6 % (2-9); NEUTROPHILS # (AUTO) 5.86 x10^3/uL (1.8-6.8); NEUTROPHILS % (AUTO) 84 % (42-75); PLATELET COUNT 124 x10^3/uL (130-400); RED BLOOD COUNT 4.06 x10^6/uL (4.38-5.82); RED CELL DISTRIBUTION WIDTH 16.5 % (9.4-14.8)
[2018-03-27 11:20] LABS: ALANINE AMINOTRANSFERASE 24 U/L (12-78); ALBUMIN 3.5 g/dL (3.4-5.0); ANION GAP 7 mmol/L (5-15); CALCIUM 8.8 mg/dL (8.5-10.1); CHLORIDE 106 mmol/L (98-107); CREATININE 0.98 mg/dL (0.7-1.3)
[2018-03-27 11:22] LABS: ALKALINE PHOSPHATASE 64 U/L (45-117); BILIRUBIN,TOTAL 0.6 mg/dL (0.2-1.0)
--- NOTE | 2018-03-27 11:38 | NUR ---
PT IS RESTING IN BED, TALKING WITH , RESPIRATIONS EQUAL AND NON LABORED. NAD. PT IS CONNECTED TO THE MONITOR. CALL LIGHT WITHIN REACH.
--- NOTE | 2018-03-27 11:46 | NUR ---
PT TAKEN TO RADIOLOGY.
[2018-03-27 11:53] LABS: MICROSCOPIC NOT IND
[2018-03-27 11:56] LABS: CULTURE INDICATED? NO
[2018-03-27 12:47] VITALS: BP 120/74
== END 2018-03-27 13:13 | disposition home or self-care (01) ==
LOC: ED 11:11
DX: R10.84 Generalized abdominal pain (principal); R11.0 Nausea; E11.9 Type 2 diabetes mellitus without complications; I11.0 Hypertensive heart disease with heart failure; I50.9 Heart failure, unspecified; I25.2 Old myocardial infarction; K21.9 Gastro-esophageal reflux disease without esophagitis; E78.5 Hyperlipidemia, unspecified; Z87.01 Personal history of pneumonia (recurrent); Z90.89 Acquired absence of other organs
CPT/HCPCS: 36415; 74021; 74176; 80053; 81003; 83690; 85025; 93005; 99284

== ENCOUNTER → 2018-04-11 | Outpatient (CLI) | payer MEDICARE ==
[~2018-04-11] VITALS: Ht 188 cm; Wt 83.2 kg
[~2018-04-11] MED LIST changes: +FENTANYL PF 100 MCG/2ML ONE; +FLUMAZENIL 0.1 MG/1 ML, 5ML ONE; +LIDOCAINE-MPF 1%, 5ML ONE; +MIDAZOLAM 1 MG/ML, 5ML ONE; +NALOXONE 1 MG/ML, 2ML ONE; +SODIUM CHLORIDE 0.9% 1,000 ML IV SCH
[2018-04-11 08:02] VITALS: BP 141/77
[2018-04-11 08:57] LABS: INTERNATIONAL NORMALIZED RATIO 1.01 (0.93-1.1); PROTHROMBIN TIME 10.7 Seconds (9.6-11.5)
== END | disposition home or self-care (01) ==
LOC: RAD 06:43
PROVIDERS: ATTEND Urology
DX: N28.1 Cyst of kidney, acquired (principal); I10 Essential (primary) hypertension; Z88.8 Allergy status to other drugs, medicaments and biological substances; Z79.01 Long term (current) use of anticoagulants
CPT/HCPCS: 36415; 49405; 85610; 88112; 88305; 99156; 99157; J2250; J3010; 75989; J2310

== ENCOUNTER 2018-04-13 16:06 | Emergency (ER) | payer MEDICARE ==
[~2018-04-13] VITALS: Ht 188 cm; Wt 81.0 kg
[~2018-04-13 16:06] MED LIST changes: -FENTANYL PF 100 MCG/2ML ONE; -FLUMAZENIL 0.1 MG/1 ML, 5ML ONE; -LIDOCAINE-MPF 1%, 5ML ONE; -MIDAZOLAM 1 MG/ML, 5ML ONE; -NALOXONE 1 MG/ML, 2ML ONE; -SODIUM CHLORIDE 0.9% 1,000 ML IV SCH
[2018-04-13 17:01] LABS: BASOPHILS # (AUTO) 0.01 x10^3/uL (0-0.1); BASOPHILS % (AUTO) 0 % (0-1); EOSINOPHILS # (AUTO) 0.03 x10^3/uL (0-0.4); EOSINOPHILS % (AUTO) 1 % (1-7); LYMPHOCYTES # (AUTO) 0.68 x10^3/uL (1-3.4); LYMPHOCYTES % (AUTO) 12 % (22-44); MD NO; MEAN CORPUSCULAR HGB CONC 33.7 g/dL (33.2-36.2); MEAN CORPUSCULAR VOLUME 86.1 fL (81-97); MEAN PLATELET VOLUME 7.8 fL (7.4-10.4); MONOCYTES # (AUTO) 0.75 x10^3/uL (0.2-0.8); MONOCYTES % (AUTO) 13 % (2-9); NEUTROPHILS # (AUTO) 4.31 x10^3/uL (1.8-6.8); NEUTROPHILS % (AUTO) 75 % (42-75); PLATELET COUNT 115 x10^3/uL (130-400); RED BLOOD COUNT 3.91 x10^6/uL (4.38-5.82); RED CELL DISTRIBUTION WIDTH 16.5 % (9.4-14.8)
[2018-04-13 17:12] LABS: ALBUMIN 3.3 g/dL (3.4-5.0); ANION GAP 7 mmol/L (5-15); CALCIUM 8.8 mg/dL (8.5-10.1); CHLORIDE 105 mmol/L (98-107); CREATININE 1.23 mg/dL (0.7-1.3)
--- NOTE | 2018-04-13 17:23 | NUR ---
PT RESTING ON GURNEY. RR EVEN AND UNLABORED. PT ON CONT SPO2 AND BP MONITOR, VSS. PT UNABLE TO GIVE URINE ATT. URINAL AT BEDSIDE. PT INSTRUCTED TO CALL PT WHEN ABLE TO GIVE SAMPLE
[2018-04-13 17:59] VITALS: BP 138/66
== END 2018-04-13 18:49 | disposition home or self-care (01) ==
LOC: ED 16:20
DX: R10.9 Unspecified abdominal pain (principal); K21.9 Gastro-esophageal reflux disease without esophagitis; I50.9 Heart failure, unspecified; E78.5 Hyperlipidemia, unspecified; I25.2 Old myocardial infarction; I25.10 Atherosclerotic heart disease of native coronary artery without angina pectoris; I11.0 Hypertensive heart disease with heart failure
CPT/HCPCS: 36415; 76770; 80048; 82040; 85025; 99284

== ENCOUNTER 2018-04-23 17:53 | Emergency (ER) | payer MEDICARE ==
[~2018-04-23] VITALS: Ht 188 cm; Wt 81.2 kg
[2018-04-23 18:01] VITALS: BP 124/73
[2018-04-23 18:26] LABS: BASOPHILS # (AUTO) 0.01 x10^3/uL (0-0.1); BASOPHILS % (AUTO) 0 % (0-1); EOSINOPHILS # (AUTO) 0.05 x10^3/uL (0-0.4); EOSINOPHILS % (AUTO) 1 % (1-7); LYMPHOCYTES # (AUTO) 0.97 x10^3/uL (1-3.4); LYMPHOCYTES % (AUTO) 15 % (22-44); MD NO; MEAN CORPUSCULAR HGB CONC 33.6 g/dL (33.2-36.2); MEAN CORPUSCULAR VOLUME 86.5 fL (81-97); MEAN PLATELET VOLUME 7.6 fL (7.4-10.4); MONOCYTES # (AUTO) 0.55 x10^3/uL (0.2-0.8); MONOCYTES % (AUTO) 9 % (2-9); NEUTROPHILS # (AUTO) 4.95 x10^3/uL (1.8-6.8); NEUTROPHILS % (AUTO) 76 % (42-75); PLATELET COUNT 218 x10^3/uL (130-400); RED BLOOD COUNT 4.11 x10^6/uL (4.38-5.82); RED CELL DISTRIBUTION WIDTH 16.9 % (9.4-14.8)
[2018-04-23 18:37] LABS: ANION GAP 7 mmol/L (5-15); CALCIUM 8.2 mg/dL (8.5-10.1); CHLORIDE 110 mmol/L (98-107); CREATININE 1.11 mg/dL (0.7-1.3)
--- NOTE | 2018-04-23 19:56 | NUR ---
TO ROOM FROM LOBBY. NAD.
--- NOTE | 2018-04-23 21:12 | NUR ---
Patient/Caregiver given discharge instructions and they have confirmed that they understand the instructions. Patient ambulatory with steady gait.
== END 2018-04-23 21:14 | disposition home or self-care (01) ==
LOC: ED 21:08
DX: M48.56XA Collapsed vertebra, not elsewhere classified, lumbar region, initial encounter for fracture (principal); J01.00 Acute maxillary sinusitis, unspecified; Z90.49 Acquired absence of other specified parts of digestive tract
CPT/HCPCS: 36415; 72131; 80048; 85025; 93005; 99284

== ENCOUNTER 2018-05-12 16:28 | Inpatient (IN) | payer MEDICARE ==
[~2018-05-12] VITALS: Ht 188 cm; Wt 76.2 kg
[~2018-05-12 16:28] MED LIST changes: +SENN-177 PO; -SENN1TAB8 PO
[2018-05-12] MEDS ORDERED: ASPIRIN 81 MG TABLET CHEW PO ONE (17:00)
[2018-05-12 17:08] LABS: ALBUMIN 3.5 g/dL (3.4-5.0); ANION GAP 3 mmol/L (5-15); CALCIUM 8.3 mg/dL (8.5-10.1); CHLORIDE 110 mmol/L (98-107); CREATININE 1.35 mg/dL (0.7-1.3)
[2018-05-12 17:12] LABS: TROPONIN I < 0.015 ng/mL (0.000-0.045)
[2018-05-12 17:13] LABS: BASOPHILS % (AUTO) 0 % (0-1); EOSINOPHILS # (AUTO) 0.02 x10^3/uL (0-0.4); EOSINOPHILS % (AUTO) 1 % (1-7); LYMPHOCYTES # (AUTO) 0.42 x10^3/uL (1-3.4); LYMPHOCYTES % (AUTO) 10 % (22-44); MD NO; MEAN CORPUSCULAR HEMOGLOBIN 29.4 pg (27.5-34.5); MEAN CORPUSCULAR HGB CONC 33.9 g/dL (33.2-36.2); MEAN CORPUSCULAR VOLUME 86.6 fL (81-97); MONOCYTES # (AUTO) 0.41 x10^3/uL (0.2-0.8); MONOCYTES % (AUTO) 9 % (2-9); NEUTROPHILS # (AUTO) 3.56 x10^3/uL (1.8-6.8); NEUTROPHILS % (AUTO) 81 % (42-75); PLATELET COUNT 118 x10^3/uL (130-400); RED BLOOD COUNT 3.95 x10^6/uL (4.38-5.82); RED CELL DISTRIBUTION WIDTH 17.1 % (9.4-14.8)
[2018-05-12] MEDS ORDERED: ASPIRIN 81 MG TABLET CHEW ONE (17:19)
[2018-05-12] MEDS ORDERED: NITROGLYCERIN SINGLE TAB 0.4 MG SL ONE (17:24)
[2018-05-12] MEDS ORDERED: NITROGLYCERIN SINGLE TAB 0.4 MG SL PRN (17:30)
--- NOTE | 2018-05-12 17:39 | NUR ---
PT STATES SMALL IMPROVEMENT IN CP SINCE NITRO GIVEN BUT THAT BACK IS WORSE. PT SITTING ON EDGE OF BED BECAUSE OF BACK PAIN. PT STATES HE WILL NOT STAND UP. CALL LIGHT BY PT
[2018-05-12] MEDS ORDERED: HYDROcodone/APAP 5/325 TABLET ONE (18:07)
--- NOTE | 2018-05-12 18:09 | NUR ---
MEDICATED PER ORDERS FOR CONTINUED BACK PAIN AND CP. MD AT BEDSIDE DISCUSSION ADVICE FOR ADMISSION
[2018-05-12] MEDS ORDERED: SODIUM CHLORIDE FLUSH 10ML SYR IVF PRN (18:30)
[2018-05-12] MEDS ORDERED: HYDROcodone/APAP 5/325 TABLET PO ONE (18:30)
[2018-05-12] MEDS ORDERED: ONDANSETRON 2MG/ML, 2ML ONE (18:58)
[2018-05-12] MEDS ORDERED: MORPHINE SULFATE 4 MG/ML, 1ML ONE (18:59)
[2018-05-12] MEDS ORDERED: MORPHINE SULFATE 4 MG/ML, 1ML IVPush PRN (19:00)
[2018-05-12] MEDS ORDERED: ONDANSETRON ODT 4 MG PO PRN (19:00)
[2018-05-12] MEDS ORDERED: ONDANSETRON 2MG/ML, 2ML IVPush PRN (19:00)
[2018-05-12] MEDS ORDERED: ONDANSETRON 2MG/ML, 2ML IVPush ONE (19:00)
[2018-05-12] MEDS ORDERED: ENALAPRILAT 1.25 MG/ML, 2ML IVPush PRN (19:00)
[2018-05-12] MEDS ORDERED: ACETAMINOPHEN 325 MG TABLET PO PRN (19:00)
[2018-05-12] MEDS ORDERED: NITROGLYCERIN 0.4 MG BOTTLE (25 TABS) SL PRN (19:00)
[2018-05-12] MEDS ORDERED: NITROGLYCERIN 0.4 MG/SPRAY SL PRN (19:00)
[2018-05-12] MEDS ORDERED: morphine SULFATE 10 MG/ML, 1ML IVPush PRN (19:00)
--- NOTE | 2018-05-12 19:55 | NUR ---
REPORT TO KASSIDY CAMPO. PT RESTING WITH EYES CLOSED BUT WHEN ASKED STATES MORPHINE DID NOT HELP HIS PAIN.
[2018-05-12 20:36] VITALS: BP 130/70
[2018-05-12 21:30] VITALS: BP 111/62
[2018-05-12] MEDS: HEPARIN 5,000 UNITS/ML, 1ML SQ SCH (21:31)
[2018-05-12] MEDS: ATORVASTATIN 40 MG TABLET PO SCH (21:31)
[2018-05-12] MEDS: LOSARTAN 50MG TABLET PO SCH (21:31)
[2018-05-12 23:19] LABS: TROPONIN I < 0.015 ng/mL (0.000-0.045)
[2018-05-12 23:50] VITALS: BP 113/60
[2018-05-12] MEDS: HYDROcodone/APAP 5/325 TABLET PO PRN (23:54)
[2018-05-13] MEDS ORDERED: CARV3.12 PO (00:36)
[2018-05-13] MEDS ORDERED: GLUC500T11 PO (00:36)
[2018-05-13] MEDS: HEPARIN 5,000 UNITS/ML, 1ML SQ SCH ×3 (03:00→19:00)
[2018-05-13 03:25] VITALS: BP 117/69
[2018-05-13] MEDS ORDERED: CARVEDILOL 12.5 MG TABLET PO SCH (06:00)
[2018-05-13 06:03] VITALS: BP 118/65
[2018-05-13] MEDS: CARVEDILOL 3.125 MG TABLET PO SCH ×2 (06:06→16:21)
[2018-05-13] MEDS: OMEPRAZOLE 20 MG CAPSULE.DR PO SCH (06:06)
[2018-05-13 07:06] LABS: ANION GAP 5 mmol/L (5-15); CALCIUM 8.1 mg/dL (8.5-10.1); CHLORIDE 109 mmol/L (98-107)
[2018-05-13 07:14] LABS: ALANINE AMINOTRANSFERASE 19 U/L (12-78); ALKALINE PHOSPHATASE 62 U/L (45-117); BILIRUBIN,TOTAL 0.6 mg/dL (0.2-1.0); CREATININE 1.04 mg/dL (0.7-1.3); PSA SCREEN 6.05 ng/mL (0.00-4.00); TOTAL PROTEIN 6.6 g/dL (6.4-8.2); TROPONIN I < 0.015 ng/mL (0.000-0.045)
[2018-05-13 07:54] VITALS: BP 119/63
[2018-05-13 07:59] LABS: MEAN CORPUSCULAR HGB CONC 33.7 g/dL (33.2-36.2); MEAN CORPUSCULAR VOLUME 86.3 fL (81-97); MEAN PLATELET VOLUME 7.8 fL (7.4-10.4); PLATELET COUNT 101 x10^3/uL (130-400); RED BLOOD COUNT 3.74 x10^6/uL (4.38-5.82); RED CELL DISTRIBUTION WIDTH 17.5 % (9.4-14.8)
[2018-05-13] MEDS: ASPIRIN 81 MG TABLET CHEW PO SCH (08:08)
[2018-05-13] MEDS: ISOSORBIDE MONONITRATE ER 60 MG TABLET PO SCH (08:08)
[2018-05-13] MEDS: LOSARTAN 50MG TABLET PO SCH ×2 (08:08→21:07)
[2018-05-13] MEDS: FUROSEMIDE 20 MG TABLET PO SCH (08:08)
[2018-05-13] MEDS: TAMSULOSIN 0.4 MG CAP.ER.24H PO SCH (08:08)
[2018-05-13 08:10] LABS: MD MORPH REVIEW ONLY
[2018-05-13] MEDS: FLUTICASONE NASAL SPRAY 16GM NAS SCH ×2 (08:10→17:00)
[2018-05-13 08:11] LABS: <PLATELET ESTIMATE> DECREASED; <PLT MORPHOLOGY> NORMAL PLT MORPH; ANISOCYTOSIS 1+; BASOPHILS # (AUTO) 0.01 x10^3/uL (0-0.1); BASOPHILS % (AUTO) 0 % (0-1); EOSINOPHILS # (AUTO) 0.09 x10^3/uL (0-0.4); EOSINOPHILS % (AUTO) 3 % (1-7); LYMPHOCYTES # (AUTO) 0.73 x10^3/uL (1-3.4); LYMPHOCYTES % (AUTO) 20 % (22-44); MONOCYTES # (AUTO) 0.48 x10^3/uL (0.2-0.8); MONOCYTES % (AUTO) 13 % (2-9); NEUTROPHILS # (AUTO) 2.31 x10^3/uL (1.8-6.8); NEUTROPHILS % (AUTO) 64 % (42-75)
[2018-05-13] MEDS ORDERED: REGADENOSON 0.4 MG/5 ML SYRINGE ONE (09:01)
[2018-05-13] MEDS: HYDROcodone/APAP 5/325 TABLET PO PRN ×3 (13:12→23:39)
[2018-05-13 13:20] VITALS: BP 100/52
[2018-05-13 14:02] VITALS: BP_SYST 100; BP_SYST 107; BP_DIAS 52; BP_DIAS 65
[2018-05-13 20:47] VITALS: BP 108/48
[2018-05-13] MEDS: FERROUS SULFATE 325 MG TABLET PO SCH (21:06)
[2018-05-13] MEDS: ATORVASTATIN 40 MG TABLET PO SCH (21:06)
[2018-05-13] MEDS: POLYETHYLENE GLYCOL 17 GM PACKET PO SCH (21:06)
[2018-05-14] MEDS: HEPARIN 5,000 UNITS/ML, 1ML SQ SCH (01:25)
[2018-05-14 05:57] VITALS: BP 130/71
[2018-05-14] MEDS: OMEPRAZOLE 20 MG CAPSULE.DR PO SCH (06:01)
[2018-05-14] MEDS: CARVEDILOL 3.125 MG TABLET PO SCH (06:02)
[2018-05-14 07:30] VITALS: BP 112/69
[2018-05-14] MEDS: POLYETHYLENE GLYCOL 17 GM PACKET PO SCH (08:11)
[2018-05-14] MEDS: FERROUS SULFATE 325 MG TABLET PO SCH (08:13)
[2018-05-14] MEDS: ASPIRIN 81 MG TABLET CHEW PO SCH (08:13)
[2018-05-14] MEDS: ISOSORBIDE MONONITRATE ER 60 MG TABLET PO SCH (08:13)
[2018-05-14] MEDS: FUROSEMIDE 20 MG TABLET PO SCH (08:13)
[2018-05-14] MEDS: LOSARTAN 50MG TABLET PO SCH (08:13)
[2018-05-14] MEDS: TAMSULOSIN 0.4 MG CAP.ER.24H PO SCH (08:13)
[2018-05-14] MEDS: HYDROcodone/APAP 5/325 TABLET PO PRN (08:13)
[2018-05-14] MEDS: FLUTICASONE NASAL SPRAY 16GM NAS SCH (08:14)
== END 2018-05-14 11:20 | disposition home or self-care (01) | DRG 302 ==
LOC: ED 17:18 → EDIP 18:27 → 5SO 20:23 → DCLOUNGE 05-14 11:05
PROVIDERS: ADMIT Family Medicine; ATTEND Family Medicine
DX: I25.10 Atherosclerotic heart disease of native coronary artery without angina pectoris (principal); E43 Unspecified severe protein-calorie malnutrition; I50.32 Chronic diastolic (congestive) heart failure; I11.0 Hypertensive heart disease with heart failure; Z91.041 Radiographic dye allergy status; I44.7 Left bundle-branch block, unspecified; I44.0 Atrioventricular block, first degree; E78.5 Hyperlipidemia, unspecified; I08.0 Rheumatic disorders of both mitral and aortic valves; Z82.49 Family history of ischemic heart disease and other diseases of the circulatory system; I25.2 Old myocardial infarction; K21.9 Gastro-esophageal reflux disease without esophagitis; Z87.442 Personal history of urinary calculi; Z95.5 Presence of coronary angioplasty implant and graft; Z68.21 Body mass index [BMI] 21.0-21.9, adult
CPT/HCPCS: 36415; 71046; 78452; 80048; 80053; 82040; 83690; 83880; 84484; 85025; 93005; 93017; 93306; 93978; 96374; 96375; 99285; G0103; G0378; J2405; J2785; A9502; C9898

== ENCOUNTER 2018-06-16 16:36 | Emergency (ER) | payer MEDICARE ==
[~2018-06-16] VITALS: Ht 188 cm; Wt 84.0 kg
[~2018-06-16 16:36] MED LIST changes: +CARV3.12 PO; +GLUC500T11 PO
[2018-06-16 16:47] VITALS: BP 87/54
[2018-06-16 17:18] LABS: BASOPHILS # (AUTO) 0.02 x10^3/uL (0-0.1); BASOPHILS % (AUTO) 0 % (0-1); EOSINOPHILS # (AUTO) 0.07 x10^3/uL (0-0.4); EOSINOPHILS % (AUTO) 1 % (1-7); LYMPHOCYTES # (AUTO) 0.77 x10^3/uL (1-3.4); LYMPHOCYTES % (AUTO) 15 % (22-44); MD NO; MEAN CORPUSCULAR HEMOGLOBIN 28.9 pg (27.5-34.5); MEAN CORPUSCULAR HGB CONC 33.2 g/dL (33.2-36.2); MEAN CORPUSCULAR VOLUME 87.2 fL (81-97); MEAN PLATELET VOLUME 8.1 fL (7.4-10.4); MONOCYTES # (AUTO) 0.58 x10^3/uL (0.2-0.8); MONOCYTES % (AUTO) 11 % (2-9); NEUTROPHILS # (AUTO) 3.87 x10^3/uL (1.8-6.8); NEUTROPHILS % (AUTO) 73 % (42-75); PLATELET COUNT 147 x10^3/uL (130-400); RED BLOOD COUNT 3.67 x10^6/uL (4.38-5.82); RED CELL DISTRIBUTION WIDTH 16.9 % (9.4-14.8)
[2018-06-16 17:26] LABS: ALBUMIN 3.4 g/dL (3.4-5.0); ANION GAP 6 mmol/L (5-15); CALCIUM 8.5 mg/dL (8.5-10.1); CHLORIDE 110 mmol/L (98-107)
[2018-06-16 17:29] LABS: ALANINE AMINOTRANSFERASE 21 U/L (12-78); ALKALINE PHOSPHATASE 76 U/L (45-117); BILIRUBIN,TOTAL 0.8 mg/dL (0.2-1.0); CREATININE 1.11 mg/dL (0.7-1.3)
--- NOTE | 2018-06-16 17:30 | NUR ---
Pt c/o R flank pain intermittently for 6 months, worse over the last x2 days. Pt states diagnosed with cyst in kidney PLACED ON [employer], EKG OBTAINED TO OBTAIN URINE SHORTLY
--- NOTE | 2018-06-16 18:07 | NUR ---
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
[2018-06-16] MEDS ORDERED: CARV6.252 PO (18:18)
[2018-06-16 18:22] LABS: MICROSCOPIC NOT IND
[2018-06-16 19:00] LABS: CULTURE INDICATED? NO
--- NOTE | 2018-06-16 19:02 | NUR ---
PATIENT REPORTS TRAMADOL WORKING WELL. "MY PAIN IS A 2 NOW. WHEN CAN I GO HOME?" PER PROVIDER DISCHARGE PAPERWORK BEING PROCESSED PATIENT UPDATED REPORT TO RORY CAMPO
== END 2018-06-16 19:43 | disposition home or self-care (01) ==
LOC: ED 19:43
DX: G89.29 Other chronic pain (principal); R10.9 Unspecified abdominal pain; K21.9 Gastro-esophageal reflux disease without esophagitis; I25.2 Old myocardial infarction; I25.10 Atherosclerotic heart disease of native coronary artery without angina pectoris; I11.0 Hypertensive heart disease with heart failure; I50.9 Heart failure, unspecified; E78.5 Hyperlipidemia, unspecified; E11.9 Type 2 diabetes mellitus without complications
CPT/HCPCS: 36415; 71045; 74176; 80053; 81003; 83690; 85025; 93005; 99284

== ENCOUNTER 2018-06-26 18:08 | Emergency (ER) | payer MEDICARE ==
[~2018-06-26] VITALS: Ht 188 cm; Wt 78.0 kg
[~2018-06-26 18:08] MED LIST changes: +CARV6.252 PO
[2018-06-26 18:59] LABS: BASOPHILS # (AUTO) 0.02 x10^3/uL (0-0.1); BASOPHILS % (AUTO) 0 % (0-1); EOSINOPHILS # (AUTO) 0.05 x10^3/uL (0-0.4); EOSINOPHILS % (AUTO) 1 % (1-7); LYMPHOCYTES # (AUTO) 0.73 x10^3/uL (1-3.4); LYMPHOCYTES % (AUTO) 17 % (22-44); MD NO; MEAN CORPUSCULAR HEMOGLOBIN 29.3 pg (27.5-34.5); MEAN CORPUSCULAR HGB CONC 34.1 g/dL (33.2-36.2); MEAN CORPUSCULAR VOLUME 85.8 fL (81-97); MEAN PLATELET VOLUME 7.9 fL (7.4-10.4); MONOCYTES # (AUTO) 0.36 x10^3/uL (0.2-0.8); MONOCYTES % (AUTO) 8 % (2-9); NEUTROPHILS # (AUTO) 3.25 x10^3/uL (1.8-6.8); NEUTROPHILS % (AUTO) 74 % (42-75); PLATELET COUNT 199 x10^3/uL (130-400); RED BLOOD COUNT 3.65 x10^6/uL (4.38-5.82); RED CELL DISTRIBUTION WIDTH 15.5 % (9.4-14.8)
--- NOTE | 2018-06-26 19:01 | NUR ---
PT. IS A & O X 4 WITH C/O RIGHT FLANK PAIN. URINE WAS COLLECTED AND SENT. PT. WAS TAKEN TO CT SCAN. REPORT GIVEN TO JAHAIRA HUERTA.
[2018-06-26 19:07] LABS: ALANINE AMINOTRANSFERASE 17 U/L (12-78); ALBUMIN 3.3 g/dL (3.4-5.0); ANION GAP 6 mmol/L (5-15); CALCIUM 8.7 mg/dL (8.5-10.1); CHLORIDE 108 mmol/L (98-107); CREATININE 0.98 mg/dL (0.7-1.3)
[2018-06-26 19:10] LABS: ALKALINE PHOSPHATASE 70 U/L (45-117); BILIRUBIN,TOTAL 0.4 mg/dL (0.2-1.0); TOTAL PROTEIN 7.3 g/dL (6.4-8.2)
--- NOTE | 2018-06-26 19:11 | NUR ---
LUNCH RN: PT BACK FROM CT, DR. ALONZO AT BEDSIDE EVALUATING PT. AT BEDSIDE. CALL LIGHT WITHIN REACH.
[2018-06-26 19:23] LABS: MICROSCOPIC AUTO
--- NOTE | 2018-06-26 19:29 | NUR ---
PT REQUESTING WATER. LABS AND CT RESULTS NOT BACK YET. PT PROVIDED WITH MOUTH SWABS FOR NOW.
[2018-06-26 19:36] LABS: CULTURE INDICATED? YES
--- NOTE | 2018-06-26 19:48 | NUR ---
PT FREQUENTLY REQUESTING PAIN MEDICATIONS AFTER DR. ALONZO HAS ALREADY DISCUSSED THESE CONCERNS WITH THE PT. HE SEES PAIN MANAGEMENT AND WAS SEEN HERE ON THE 15 AND RECEIEVED A PRESCRIPTION THEN. DR. ALONZO DISCUSSED THESE FINDINGS WITH THE PT.
--- NOTE | 2018-06-26 20:00 | NUR ---
PT MEDICATED PER EMAR. 5 RIGHTS ADDRESSED.
[2018-06-26 20:01] VITALS: BP 125/74
--- NOTE | 2018-06-26 20:02 | NUR ---
DR. ALONZO AT BEDSIDE UPDATING PT ON POC
--- NOTE | 2018-06-26 20:24 | NUR ---
Patient/Caregiver given discharge instructions and they have confirmed that they understand the instructions. Patient ambulatory with steady gait.
== END 2018-06-26 20:25 | disposition home or self-care (01) ==
LOC: ED 20:16
DX: M51.36 Other intervertebral disc degeneration, lumbar region (principal); G89.29 Other chronic pain; I11.0 Hypertensive heart disease with heart failure; I25.10 Atherosclerotic heart disease of native coronary artery without angina pectoris; E11.9 Type 2 diabetes mellitus without complications; K21.9 Gastro-esophageal reflux disease without esophagitis; E78.5 Hyperlipidemia, unspecified; Z79.899 Other long term (current) drug therapy; Z90.49 Acquired absence of other specified parts of digestive tract; Z88.8 Allergy status to other drugs, medicaments and biological substances
CPT/HCPCS: 36415; 74176; 80053; 81001; 83690; 85025; 87086; 99284

== ENCOUNTER 2018-07-23 17:28 | Observation (INO) | payer MEDICARE ==
[~2018-07-23] VITALS: Ht 188 cm; Wt 76.0 kg
[2018-07-23] MEDS ORDERED: ASPIRIN 81 MG TABLET CHEW PO ONE (20:00)
[2018-07-23] MEDS ORDERED: ASPIRIN 81 MG TABLET CHEW ONE (20:07)
[2018-07-23 20:13] LABS: BASOPHILS # (AUTO) 0.02 x10^3/uL (0-0.1); BASOPHILS % (AUTO) 0 % (0-1); EOSINOPHILS # (AUTO) 0.05 x10^3/uL (0-0.4); EOSINOPHILS % (AUTO) 1 % (1-7); LYMPHOCYTES # (AUTO) 0.76 x10^3/uL (1-3.4); LYMPHOCYTES % (AUTO) 12 % (22-44); MD NO; MEAN CORPUSCULAR HEMOGLOBIN 27.6 pg (27.5-34.5); MEAN CORPUSCULAR HGB CONC 31.4 g/dL (33.2-36.2); MEAN CORPUSCULAR VOLUME 87.9 fL (81-97); MEAN PLATELET VOLUME 7.6 fL (7.4-10.4); MONOCYTES # (AUTO) 0.51 x10^3/uL (0.2-0.8); MONOCYTES % (AUTO) 8 % (2-9); NEUTROPHILS # (AUTO) 4.86 x10^3/uL (1.8-6.8); NEUTROPHILS % (AUTO) 78 % (42-75); PLATELET COUNT 210 x10^3/uL (130-400); RED BLOOD COUNT 3.68 x10^6/uL (4.38-5.82)
--- NOTE | 2018-07-23 20:20 | NUR ---
spoke with his son. son states he is taking the tramadol more than he should. son estimates pt is taking the tramadol up to 6 times a day when directed to do no more than 4 time a day.
[2018-07-23 20:26] LABS: ALBUMIN 3.2 g/dL (3.4-5.0); ANION GAP 6 mmol/L (5-15); CALCIUM 8.5 mg/dL (8.5-10.1); CHLORIDE 106 mmol/L (98-107); CREATININE 1.01 mg/dL (0.7-1.3)
--- NOTE | 2018-07-23 20:27 | NUR ---
pt found up in room searching through cabinets. pt redirected to bed and call light provided. pt encouraged to call rn if he needs anything.
[2018-07-23 20:29] LABS: TROPONIN I 0.022 ng/mL (0.000-0.045)
[2018-07-23] MEDS ORDERED: ACETAMINOPHEN 500 MG TABLET ONE (21:16)
[2018-07-23] MEDS ORDERED: ACETAMINOPHEN 500 MG TABLET PO ONE (21:30)
[2018-07-23] MEDS ORDERED: FUROSEMIDE 40 MG/4 ML IV ONE (21:30)
[2018-07-23] MEDS ORDERED: FUROSEMIDE 40 MG/4 ML ONE (21:34)
--- NOTE | 2018-07-23 22:08 | NUR ---
ADMITTING MD AT FOR EVAL FOR ADMISSION. PT. HAS CHANGED BACK INTO ALL OF HIS CLOTHING AND REFUSED TO PUT BACK ON A GOWN. EXPLAINED TO PT. GOWN IS NEEDED FOR ADMISSION. HE STATES "I WILL PUT ONE ON ONCE I GET UPSTAIRS." ALL MONITORS ARE IN PLACE. CALL LIGHT IN REACH. ALL SAFETY MEASURES OBSERVED. AWAITING BED UPSTAIRS.
--- NOTE | 2018-07-23 22:10 | NUR ---
FREQUENT ECTOPY NOTED ON MONITOR-RATE 86-93. PVC'S, PAC'S.
[2018-07-23] MEDS ORDERED: ACETAMINOPHEN 325 MG TABLET PO PRN (22:30)
[2018-07-23] MEDS ORDERED: DOCUSATE 100 MG CAPSULE PO PRN (22:30)
--- NOTE | 2018-07-23 22:43 | NUR ---
ATTEMPTING TO CALL REPORT TO FLOOR.
--- NOTE | 2018-07-23 22:49 | NUR ---
WAITING ON HOLD TO GIVE REPORT TO FLOOR.
[2018-07-24] VITALS: BP 140/74
[2018-07-24 01:58] VITALS: BP 123/76
[2018-07-24 05:09] LABS: ANION GAP 5 mmol/L (5-15); CALCIUM 8.5 mg/dL (8.5-10.1); CHLORIDE 106 mmol/L (98-107); CREATININE 0.98 mg/dL (0.7-1.3)
[2018-07-24 08:12] VITALS: BP 160/83
[2018-07-24] MEDS ORDERED: CARVEDILOL 6.25 MG TABLET PO SCH (09:00)
[2018-07-24] MEDS ORDERED: ASPIRIN 81 MG TABLET EC PO SCH (09:00)
[2018-07-24] MEDS ORDERED: FUROSEMIDE 20 MG TABLET PO SCH (09:00)
[2018-07-24] MEDS ORDERED: LOSARTAN 50MG TABLET PO SCH (09:00)
[2018-07-24] MEDS ORDERED: ISOSORBIDE MONONITRATE ER 60 MG TABLET PO SCH (09:00)
[2018-07-24] MEDS ORDERED: OMEPRAZOLE 20 MG CAPSULE.DR PO SCH (09:00)
[2018-07-24] MEDS ORDERED: CHOLECALCIFEROL 1,000 UNIT TABLET PO SCH (09:00)
[2018-07-24] MEDS ORDERED: TAMSULOSIN 0.4 MG CAP.ER.24H PO SCH (09:00)
[2018-07-24] MEDS ORDERED: FERROUS SULFATE 325 MG TABLET PO SCH (09:00)
[2018-07-24 13:58] VITALS: BP 129/78
[2018-07-24] MEDS ORDERED: ACET500T76 PO (14:18)
[2018-07-24] MEDS ORDERED: ACETAMINOPHEN 325 MG TABLET PO SCH (14:30)
[2018-07-24] MEDS ORDERED: ACETAMINOPHEN 500 MG TABLET PO PRN (15:00)
[2018-07-24] MEDS ORDERED: ATORVASTATIN 40 MG TABLET PO SCH (21:00)
== END 2018-07-24 16:16 | disposition home or self-care (01) ==
LOC: ED 21:19 → INTOOBSV 21:31 → EDIP 21:31 → 5SO 23:22
PROVIDERS: ADMIT Family Medicine; ATTEND Family Medicine
DX: R55 Syncope and collapse (principal); G89.29 Other chronic pain; M54.5 Low back pain; I11.0 Hypertensive heart disease with heart failure; I50.9 Heart failure, unspecified; I25.10 Atherosclerotic heart disease of native coronary artery without angina pectoris; R09.02 Hypoxemia; D50.9 Iron deficiency anemia, unspecified; E11.9 Type 2 diabetes mellitus without complications; E78.5 Hyperlipidemia, unspecified; I25.2 Old myocardial infarction; K21.9 Gastro-esophageal reflux disease without esophagitis; Z79.82 Long term (current) use of aspirin; Z79.899 Other long term (current) drug therapy; Z95.5 Presence of coronary angioplasty implant and graft
CPT/HCPCS: 36415; 71045; 80048; 82040; 83880; 84484; 85025; 93005; 96374; 97161; 97165; 99284; G0378; J1940

== ENCOUNTER 2018-08-11 15:11 | Emergency (ER) | payer MEDICARE ==
[~2018-08-11] VITALS: Ht 188 cm; Wt 73.0 kg
[~2018-08-11 15:11] MED LIST changes: +ACET500T76 PO; -FLUT16SP NAS; +FLUT16SP24 NAS
--- NOTE | 2018-08-11 16:04 | NUR ---
BREAK RN": PT TO ROOM AT THIS TIME FROM LOBBY
--- NOTE | 2018-08-11 16:05 | NUR ---
87 Y/O MALE PRESENTS TO ED WITH C/O BACK PAIN. PER PT "I HAVE SOME MORE BACK PAIN. IT'S THE SAME BEFORE, BUT THE PAIN IS WORSE. I CALLED MY DR, BUT I DIDN'T GET TO SEE HIM FOR THIS EPISODE." FAMILY BEDSIDE. PT PLACED ON CONT PULSE OX,NIBP. EDMD BEDSIDE. NO C/O N/V/D, TRAUMA, SYNCOPE, CP, SOB, LOSS OF BOWEL AND BLADDER.
[2018-08-11] MEDS ORDERED: HYDROcodone/APAP 5/325 TABLET ONE (16:09)
[2018-08-11 16:17] VITALS: BP 106/62
--- NOTE | 2018-08-11 16:17 | NUR ---
BREAK RN: PT EDUCATED REGARDING NEED FOR UA. URINAL PLACED BEDSIDE. PT VERBALIZED UNDERSTANDING.
[2018-08-11 16:24] LABS: BASOPHILS # (AUTO) 0.01 x10^3/uL (0-0.1); BASOPHILS % (AUTO) 0 % (0-1); EOSINOPHILS # (AUTO) 0.04 x10^3/uL (0-0.4); EOSINOPHILS % (AUTO) 1 % (1-7); LYMPHOCYTES # (AUTO) 0.47 x10^3/uL (1-3.4); LYMPHOCYTES % (AUTO) 11 % (22-44); MD NO; MEAN CORPUSCULAR HGB CONC 32.6 g/dL (33.2-36.2); MEAN CORPUSCULAR VOLUME 85.8 fL (81-97); MEAN PLATELET VOLUME 7.9 fL (7.4-10.4); MONOCYTES # (AUTO) 0.39 x10^3/uL (0.2-0.8); MONOCYTES % (AUTO) 9 % (2-9); NEUTROPHILS # (AUTO) 3.43 x10^3/uL (1.8-6.8); NEUTROPHILS % (AUTO) 79 % (42-75); PLATELET COUNT 153 x10^3/uL (130-400); RED BLOOD COUNT 3.64 x10^6/uL (4.38-5.82); RED CELL DISTRIBUTION WIDTH 17.4 % (9.4-14.8)
[2018-08-11] MEDS ORDERED: HYDROcodone/APAP 5/325 TABLET PO ONE (16:30)
[2018-08-11 16:38] LABS: ANION GAP 5 mmol/L (5-15); CALCIUM 8.6 mg/dL (8.5-10.1); CHLORIDE 112 mmol/L (98-107)
--- NOTE | 2018-08-11 16:52 | NUR ---
BREAK RN: BEDSIDE REPORT TO JAHAIRA MANCINI.
--- NOTE | 2018-08-11 17:00 | NUR ---
ASSUMED CARE OF PT. PT SITTING AT EDGE OF [facility] AFTER PROVIDING URINE SAMPLE. C/O LOW AND MID BACK PAIN, STATING NOT MUCH RELIEF SINCE RECEIVING PAIN MEDICATION FOR SAME. URINE SAMPLE OBTAINED AND SENT
[2018-08-11 17:20] LABS: MICROSCOPIC AUTO
[2018-08-11 17:22] LABS: CULTURE INDICATED? YES
--- NOTE | 2018-08-11 17:32 | NUR ---
MD AT BEDSIDE EXAMINING PT
--- NOTE | 2018-08-11 18:29 | NUR ---
DISCHARGE INSTRUCTIONS GIVEN. PT UOB AND INTO WHEELCHAIR WITHOUT ASSISTANCE AND TO DISCHARGE WINDOW WITH SON
== END 2018-08-11 18:30 | disposition home or self-care (01) ==
LOC: ED 16:23
DX: G89.29 Other chronic pain (principal); M47.896 Other spondylosis, lumbar region; M47.894 Other spondylosis, thoracic region; M54.5 Low back pain; D53.9 Nutritional anemia, unspecified; K21.9 Gastro-esophageal reflux disease without esophagitis; I50.9 Heart failure, unspecified; I25.2 Old myocardial infarction; I25.10 Atherosclerotic heart disease of native coronary artery without angina pectoris; I11.0 Hypertensive heart disease with heart failure; E11.9 Type 2 diabetes mellitus without complications; E78.5 Hyperlipidemia, unspecified
CPT/HCPCS: 36415; 72072; 72110; 80048; 81001; 85025; 87086; 99284

== ENCOUNTER 2018-08-17 15:51 | Inpatient (IN) | payer MEDICARE ==
[~2018-08-17] VITALS: Ht 188 cm; Wt 76.3 kg
--- NOTE | 2018-08-17 16:26 | NUR ---
pt reports pain on the right back/side around the 12th rib due to a GLF suffered on 08/14.
[2018-08-17] MEDS ORDERED: HYDROcodone/APAP 5/325 TABLET PO ONE (16:30)
[2018-08-17] MEDS ORDERED: HYDROcodone/APAP 5/325 TABLET ONE (16:37)
--- NOTE | 2018-08-17 17:14 | NUR ---
PT O2 SATS AT 85% ON ROOM AIR. 2 L NASAL CANNULA APPLIED AND O2 SATS IMPROVED TO 95%
--- NOTE | 2018-08-17 17:35 | NUR ---
ADDITIONAL ORDERS RECEIVED FOR LABS AND CT. LAB CUTTENTLY AT BEDSIDE
--- NOTE | 2018-08-17 17:43 | NUR ---
MD AT BEDSIDE TO ASSESS PT
[2018-08-17 17:53] LABS: BASOPHILS # (AUTO) 0.02 x10^3/uL (0-0.1); BASOPHILS % (AUTO) 0 % (0-1); EOSINOPHILS # (AUTO) 0.09 x10^3/uL (0-0.4); EOSINOPHILS % (AUTO) 2 % (1-7); LYMPHOCYTES # (AUTO) 0.55 x10^3/uL (1-3.4); LYMPHOCYTES % (AUTO) 11 % (22-44); MD NO; MEAN CORPUSCULAR HEMOGLOBIN 28.4 pg (27.5-34.5); MEAN CORPUSCULAR HGB CONC 32.4 g/dL (33.2-36.2); MEAN CORPUSCULAR VOLUME 87.5 fL (81-97); MEAN PLATELET VOLUME 8.3 fL (7.4-10.4); MONOCYTES # (AUTO) 0.42 x10^3/uL (0.2-0.8); MONOCYTES % (AUTO) 8 % (2-9); NEUTROPHILS # (AUTO) 4.16 x10^3/uL (1.8-6.8); NEUTROPHILS % (AUTO) 79 % (42-75); PLATELET COUNT 173 x10^3/uL (130-400); RED BLOOD COUNT 3.38 x10^6/uL (4.38-5.82)
[2018-08-17 18:01] LABS: ALANINE AMINOTRANSFERASE 24 U/L (12-78); ANION GAP 5 mmol/L (5-15); CALCIUM 8.2 mg/dL (8.5-10.1); CHLORIDE 111 mmol/L (98-107)
[2018-08-17 18:06] LABS: ALKALINE PHOSPHATASE 69 U/L (45-117); BILIRUBIN,TOTAL 0.7 mg/dL (0.2-1.0); TOTAL PROTEIN 6.4 g/dL (6.4-8.2); TROPONIN I < 0.015 ng/mL (0.000-0.045)
--- NOTE | 2018-08-17 18:31 | NUR ---
ALL RESULTS BACK AT THIS TIME, CHART UP FOR RECHECK
--- NOTE | 2018-08-17 18:42 | NUR ---
INCENTIVE SPIROMETER TEACHING COMPLETED. PT ABLE TO BRING EPHRAIM TO 1000. MD TO BE UPDATED
[2018-08-17] MEDS ORDERED: SODIUM CHLORIDE FLUSH 10ML SYR IVF ONE (19:00)
[2018-08-17] MEDS ORDERED: MORPHINE SULFATE 4 MG/ML, 1ML IVPush PRN (19:00)
--- NOTE | 2018-08-17 19:12 | NUR ---
pt recieved PIV. tolerated procedure well. pt to be admitted. belongings secured in 2 bags with pt.
[2018-08-17] MEDS ORDERED: MORPHINE SULFATE 4 MG/ML, 1ML ONE (19:14)
--- NOTE | 2018-08-17 19:18 | NUR ---
PT MEDICATED FOR PAIN PER EMAR
--- NOTE | 2018-08-17 19:33 | NUR ---
REPORT GIVEN TO KAYE RN, PT READY FOR TRANSPORT
[2018-08-17] MEDS ORDERED: ENALAPRILAT 1.25 MG/ML, 2ML IVPush PRN (20:00)
[2018-08-17] MEDS ORDERED: ONDANSETRON ODT 4 MG PO PRN (20:00)
[2018-08-17] MEDS ORDERED: ONDANSETRON 2MG/ML, 2ML IVPush PRN (20:00)
[2018-08-17] MEDS ORDERED: morphine SULFATE 10 MG/ML, 1ML IVPush PRN (20:00)
[2018-08-17] MEDS ORDERED: LABETALOL 5MG/ML, 20ML IVPush PRN (20:00)
[2018-08-17] MEDS ORDERED: LOSARTAN 50MG TABLET PO SCH (21:00)
[2018-08-17] MEDS: ATORVASTATIN 40 MG TABLET PO SCH (21:34)
[2018-08-17] MEDS: CARVEDILOL 6.25 MG TABLET PO SCH (21:35)
[2018-08-17] MEDS: HEPARIN 5,000 UNITS/ML, 1ML SQ SCH (21:35)
[2018-08-17] MEDS: LIDODERM 5% PATCH TD PRN (23:03)
[2018-08-17] MEDS: ACETAMINOPHEN 325 MG TABLET PO PRN (23:04)
[2018-08-17] MEDS ORDERED: TELM40TA4 PO (23:47)
[2018-08-18 03:00] VITALS: BP 137/77
[2018-08-18 05:58] LABS: ANION GAP 4 mmol/L (5-15); CALCIUM 8.3 mg/dL (8.5-10.1); CHLORIDE 110 mmol/L (98-107)
[2018-08-18 05:59] LABS: CREATININE 1.07 mg/dL (0.7-1.3)
[2018-08-18] MEDS: OMEPRAZOLE 20 MG CAPSULE.DR PO SCH (06:11)
[2018-08-18] MEDS: CARVEDILOL 6.25 MG TABLET PO SCH ×2 (06:11→17:40)
[2018-08-18] MEDS: ASPIRIN 81 MG TABLET EC PO SCH (06:11)
[2018-08-18] MEDS: HEPARIN 5,000 UNITS/ML, 1ML SQ SCH ×3 (06:12→21:33)
[2018-08-18 06:51] VITALS: BP 130/64
[2018-08-18] MEDS: OMEGA-3/FISH OIL CAPSULE PO SCH (08:05)
[2018-08-18] MEDS: SENNA/DOCUSATE TABLET PO SCH (08:05)
[2018-08-18] MEDS: CHOLECALCIFEROL 1,000 UNIT TABLET PO SCH (08:05)
[2018-08-18] MEDS: TAMSULOSIN 0.4 MG CAP.ER.24H PO SCH (08:05)
[2018-08-18] MEDS: FERROUS SULFATE 325 MG TABLET PO SCH (08:05)
[2018-08-18] MEDS: ISOSORBIDE MONONITRATE ER 60 MG TABLET PO SCH (08:06)
[2018-08-18] MEDS: ACETAMINOPHEN 325 MG TABLET PO PRN ×2 (08:06→16:31)
[2018-08-18] MEDS: FLUTICASONE NASAL SPRAY 16GM NAS SCH (08:08)
[2018-08-18 12:19] VITALS: BP 133/84
[2018-08-18] MEDS: HYDROcodone/APAP 5/325 TABLET PO PRN ×3 (13:13→21:33)
[2018-08-18 18:46] VITALS: BP 134/68
[2018-08-18] MEDS: ATORVASTATIN 40 MG TABLET PO SCH (21:32)
[2018-08-18] MEDS: LIDODERM 5% PATCH TD PRN (21:33)
[2018-08-19 01:14] VITALS: BP 145/72
[2018-08-19 05:09] LABS: BASOPHILS # (AUTO) 0.02 x10^3/uL (0-0.1); BASOPHILS % (AUTO) 0 % (0-1); EOSINOPHILS # (AUTO) 0.15 x10^3/uL (0-0.4); EOSINOPHILS % (AUTO) 3 % (1-7); LYMPHOCYTES # (AUTO) 0.57 x10^3/uL (1-3.4); LYMPHOCYTES % (AUTO) 10 % (22-44); MD NO; MEAN CORPUSCULAR HEMOGLOBIN 28.1 pg (27.5-34.5); MEAN CORPUSCULAR HGB CONC 32.2 g/dL (33.2-36.2); MEAN CORPUSCULAR VOLUME 87.1 fL (81-97); MEAN PLATELET VOLUME 8.3 fL (7.4-10.4); MONOCYTES # (AUTO) 0.53 x10^3/uL (0.2-0.8); MONOCYTES % (AUTO) 9 % (2-9); NEUTROPHILS % (AUTO) 79 % (42-75); PLATELET COUNT 144 x10^3/uL (130-400); RED BLOOD COUNT 3.37 x10^6/uL (4.38-5.82); RED CELL DISTRIBUTION WIDTH 17.8 % (9.4-14.8)
[2018-08-19 05:13] LABS: ANION GAP 3 mmol/L (5-15); CALCIUM 8.2 mg/dL (8.5-10.1); CHLORIDE 108 mmol/L (98-107); CREATININE 1.24 mg/dL (0.7-1.3)
[2018-08-19] MEDS: CARVEDILOL 6.25 MG TABLET PO SCH (05:17)
[2018-08-19] MEDS: OMEPRAZOLE 20 MG CAPSULE.DR PO SCH (05:17)
[2018-08-19] MEDS: ASPIRIN 81 MG TABLET EC PO SCH (05:17)
[2018-08-19] MEDS: HYDROcodone/APAP 5/325 TABLET PO PRN ×2 (05:17→09:38)
[2018-08-19] MEDS: HEPARIN 5,000 UNITS/ML, 1ML SQ SCH ×2 (05:18→13:30)
[2018-08-19 06:42] VITALS: BP 136/78
[2018-08-19] MEDS: FLUTICASONE NASAL SPRAY 16GM NAS SCH (07:34)
[2018-08-19] MEDS: SENNA/DOCUSATE TABLET PO SCH (09:37)
[2018-08-19] MEDS: CHOLECALCIFEROL 1,000 UNIT TABLET PO SCH (09:37)
[2018-08-19] MEDS: ISOSORBIDE MONONITRATE ER 60 MG TABLET PO SCH (09:38)
[2018-08-19] MEDS: OMEGA-3/FISH OIL CAPSULE PO SCH (09:38)
[2018-08-19] MEDS: TAMSULOSIN 0.4 MG CAP.ER.24H PO SCH (09:38)
[2018-08-19] MEDS: FERROUS SULFATE 325 MG TABLET PO SCH (09:38)
[2018-08-19] MEDS ORDERED: HYDR-3237 PO (12:18)
[2018-08-19 13:43] VITALS: BP 144/87
== END 2018-08-19 15:46 | disposition home health service (06) | DRG 183 ==
LOC: ED 17:01 → EDIP 19:24 → 4NOR 20:10
PROVIDERS: ADMIT Family Medicine; ATTEND Family Medicine
DX: S22.41XA Multiple fractures of ribs, right side, initial encounter for closed fracture (principal); J96.91 Respiratory failure, unspecified with hypoxia; N17.9 Acute kidney failure, unspecified; I25.10 Atherosclerotic heart disease of native coronary artery without angina pectoris; K21.9 Gastro-esophageal reflux disease without esophagitis; G89.29 Other chronic pain; E78.5 Hyperlipidemia, unspecified; E11.9 Type 2 diabetes mellitus without complications; N40.0 Benign prostatic hyperplasia without lower urinary tract symptoms; I11.0 Hypertensive heart disease with heart failure; I08.0 Rheumatic disorders of both mitral and aortic valves; D64.9 Anemia, unspecified; W18.30XA Fall on same level, unspecified, initial encounter; M81.0 Age-related osteoporosis without current pathological fracture; I50.9 Heart failure, unspecified; Z99.81 Dependence on supplemental oxygen; Y93.89 Activity, other specified; Y92.89 Other specified places as the place of occurrence of the external cause; Y99.8 Other external cause status; Z95.5 Presence of coronary angioplasty implant and graft
CPT/HCPCS: 36415; 71250; 80048; 80053; 82274; 84484; 85025; 93005; 99285; G0378; J1644; J2270

== ENCOUNTER 2018-09-13 15:48 | Inpatient (IN) | payer MEDICARE ==
[~2018-09-13] VITALS: Ht 188 cm; Wt 106.2 kg
[2018-09-15 10:44] VITALS: BP 149/79
== END 2018-09-15 15:29 | disposition home health service (06) | DRG 292 ==
LOC: ED 16:14 → EDIP 17:39 → 5SO 18:40
PROVIDERS: ADMIT Family Medicine; ATTEND Family Medicine
DX: I11.0 Hypertensive heart disease with heart failure (principal); I47.2 Ventricular tachycardia; I50.33 Acute on chronic diastolic (congestive) heart failure; D64.9 Anemia, unspecified; Z83.3 Family history of diabetes mellitus; Z82.49 Family history of ischemic heart disease and other diseases of the circulatory system; E78.5 Hyperlipidemia, unspecified; G89.29 Other chronic pain; M54.9 Dorsalgia, unspecified; I25.10 Atherosclerotic heart disease of native coronary artery without angina pectoris; I25.2 Old myocardial infarction; K21.9 Gastro-esophageal reflux disease without esophagitis; K59.00 Constipation, unspecified; N40.0 Benign prostatic hyperplasia without lower urinary tract symptoms; Z79.899 Other long term (current) drug therapy; Z87.442 Personal history of urinary calculi; Z87.892 Personal history of anaphylaxis; Z91.041 Radiographic dye allergy status; Z95.5 Presence of coronary angioplasty implant and graft; Z88.3 Allergy status to other anti-infective agents
CPT/HCPCS: 36415; 71045; 80048; 80053; 83605; 83880; 84145; 84484; 85025; 85379; 87040; 93005; 96374; 96375; 99285; G0378; J0696; J1170; J1644; J1885; J2543; J1940; J2270

== ENCOUNTER 2019-01-17 17:16 | Inpatient (IN) | payer MEDICARE ==
[~2019-01-17] VITALS: Ht 188 cm; Wt 73.2 kg
[~2019-01-17 17:16] MED LIST changes: +DIGO125T PO; +HYDR-3237 PO; +METO25TA35 PO; +RIVA20TA PO; +TELM40TA4 PO
[2019-01-17] MEDS ORDERED: SODIUM CHLORIDE FLUSH 10ML SYR IVF ONE (18:00)
[2019-01-17 18:02] LABS: BASOPHILS # (AUTO) 0.02 x10^3/uL (0-0.1); BASOPHILS % (AUTO) 0 % (0-1); EOSINOPHILS # (AUTO) 0.07 x10^3/uL (0-0.4); EOSINOPHILS % (AUTO) 1 % (1-7); LYMPHOCYTES # (AUTO) 0.42 x10^3/uL (1-3.4); LYMPHOCYTES % (AUTO) 7 % (22-44); MD NO; MEAN CORPUSCULAR HEMOGLOBIN 28.2 pg (27.5-34.5); MEAN CORPUSCULAR HGB CONC 32.2 g/dL (33.2-36.2); MEAN CORPUSCULAR VOLUME 87.7 fL (81-97); MEAN PLATELET VOLUME 8.6 fL (7.4-10.4); MONOCYTES # (AUTO) 0.64 x10^3/uL (0.2-0.8); MONOCYTES % (AUTO) 11 % (2-9); NEUTROPHILS # (AUTO) 4.84 x10^3/uL (1.8-6.8); NEUTROPHILS % (AUTO) 81 % (42-75); PLATELET COUNT 147 x10^3/uL (130-400); RED CELL DISTRIBUTION WIDTH 20.4 % (9.4-14.8)
--- NOTE | 2019-01-17 18:04 | NUR ---
Provided report to JAHAIRA Sánchez. Answered all questions. JAHAIRA Sánchez to assume care of pt at this time.
[2019-01-17 18:09] LABS: INTERNATIONAL NORMALIZED RATIO 1.17 (0.93-1.1); PROTHROMBIN TIME 12.2 Seconds (9.6-11.5)
[2019-01-17 18:13] LABS: ALBUMIN 3.1 g/dL (3.4-5.0); ANION GAP 7 mmol/L (5-15); CALCIUM 7.9 mg/dL (8.5-10.1); CHLORIDE 111 mmol/L (98-107); CREATININE 0.78 mg/dL (0.7-1.3)
[2019-01-17 18:16] LABS: TROPONIN I < 0.015 ng/mL (0.000-0.045)
[2019-01-17] MEDS ORDERED: FUROSEMIDE 40 MG/4 ML IV ONE (18:30)
[2019-01-17] MEDS ORDERED: FUROSEMIDE 40 MG/4 ML ONE (18:42)
[2019-01-17] MEDS ORDERED: SERT25TA3 PO (18:58)
[2019-01-17] MEDS ORDERED: BISACODYL 10 MG SUPP PR PRN (19:00)
[2019-01-17] MEDS ORDERED: ENALAPRILAT 1.25 MG/ML, 2ML IVPush PRN (19:00)
[2019-01-17] MEDS ORDERED: POTASSIUM CHLORIDE 10% 40 MEQ/30 ML UDC PO ONE (19:00)
[2019-01-17] MEDS ORDERED: POTASSIUM CHLORIDE 20 MEQ PACKET ONE (19:14)
[2019-01-17 19:30] VITALS: BP 148/87
--- NOTE | 2019-01-17 19:31 | NUR ---
PT MEDICATED PER MD ORDER WITH POTASSIUM AND LASIX. MEDICATION RECONCILIATION DONE WITH SON AT BEDSIDE.
[2019-01-17 19:58] VITALS: BP 148/87
--- NOTE | 2019-01-17 20:06 | NUR ---
SPOKE TO DR. LISA OLMOS ON THE PHONE REGARDING PT NOT TAKING HIS EVENING MEDS. PT'S SON, JACOBO, MISTAKENLY INFORMED DR. OLMOS THAT HE DID TAKE HIS EVENING MEDS ALREADY. PER DR. OLMOS, IT IS OK FOR PT TO TAKE HIS EVENING MEDICATIONS IN THE BAG, MINUS HIS LASIX. ROSALIND, NURSE ON TELE WHO IS NOW TAKING CARE OF PT, AWARE THAT PT CAN TAKE THE MEDICATIONS MINUS THE LASIX.
[2019-01-17] MEDS: HYDROcodone/APAP 5/325 TABLET PO PRN (20:32)
[2019-01-17] MEDS ORDERED: ZOLPIDEM 5MG TABLET PO ONE (23:00)
[2019-01-18] MEDS ORDERED: ZOLPIDEM 5MG TABLET PO ONE ×2 (00:30→21:30)
[2019-01-18 04:02] VITALS: BP 128/79
[2019-01-18 05:21] LABS: BASOPHILS # (AUTO) 0.01 x10^3/uL (0-0.1); BASOPHILS % (AUTO) 0 % (0-1); EOSINOPHILS # (AUTO) 0.09 x10^3/uL (0-0.4); EOSINOPHILS % (AUTO) 1 % (1-7); LYMPHOCYTES # (AUTO) 0.57 x10^3/uL (1-3.4); LYMPHOCYTES % (AUTO) 9 % (22-44); MD NO; MEAN CORPUSCULAR HEMOGLOBIN 27.9 pg (27.5-34.5); MEAN CORPUSCULAR HGB CONC 32.1 g/dL (33.2-36.2); MEAN PLATELET VOLUME 9.1 fL (7.4-10.4); MONOCYTES # (AUTO) 0.79 x10^3/uL (0.2-0.8); MONOCYTES % (AUTO) 12 % (2-9); NEUTROPHILS # (AUTO) 5.17 x10^3/uL (1.8-6.8); NEUTROPHILS % (AUTO) 78 % (42-75); PLATELET COUNT 138 x10^3/uL (130-400); RED BLOOD COUNT 3.86 x10^6/uL (4.38-5.82); RED CELL DISTRIBUTION WIDTH 20.2 % (9.4-14.8)
[2019-01-18 05:36] LABS: CHLORIDE 108 mmol/L (98-107)
[2019-01-18 05:52] LABS: ALANINE AMINOTRANSFERASE 67 U/L (12-78); ALBUMIN 3.1 g/dL (3.4-5.0); ALKALINE PHOSPHATASE 157 U/L (45-117); ANION GAP 7 mmol/L (5-15); BILIRUBIN,TOTAL 1.4 mg/dL (0.2-1.0); CALCIUM 8.3 mg/dL (8.5-10.1); CREATININE 0.88 mg/dL (0.7-1.3); TOTAL PROTEIN 7.1 g/dL (6.4-8.2)
[2019-01-18 07:55] VITALS: BP 147/82
[2019-01-18] MEDS: FLUTICASONE NASAL SPRAY 16GM NAS SCH (09:00)
[2019-01-18] MEDS ORDERED: POTASSIUM CHLORIDE 10% 20 MEQ/15 ML UDC PO SCH ×2 (09:00)
[2019-01-18] MEDS: OMEPRAZOLE 20 MG CAPSULE.DR PO SCH (09:12)
[2019-01-18] MEDS: ISOSORBIDE MONONITRATE ER 60 MG TABLET PO SCH (09:12)
[2019-01-18] MEDS: RIVAROXABAN 20 MG TABLET PO SCH (09:12)
[2019-01-18] MEDS: DIGOXIN 0.125 MG TABLET PO SCH (09:12)
[2019-01-18] MEDS: HYDROcodone/APAP 5/325 TABLET PO PRN ×2 (09:13→18:13)
[2019-01-18] MEDS: TAMSULOSIN 0.4 MG CAP.ER.24H PO SCH (09:14)
[2019-01-18] MEDS: DOCUSATE 100 MG CAPSULE PO PRN (09:14)
[2019-01-18] MEDS: CARVEDILOL 12.5 MG TABLET PO SCH (09:14)
[2019-01-18] MEDS: FUROSEMIDE 20 MG/2 ML IV SCH ×2 (09:22→17:38)
[2019-01-18] MEDS: SERTRALINE 50MG TABLET PO SCH (09:24)
[2019-01-18 10:11] VITALS: BP 139/84
[2019-01-18] MEDS ORDERED: ONDANSETRON 2MG/ML, 2ML IVPush PRN (11:00)
[2019-01-18 14:11] VITALS: BP 114/70
[2019-01-18] MEDS: POTASSIUM CHLORIDE 20 MEQ TAB.ER.PRT PO SCH (17:38)
[2019-01-18 19:02] VITALS: BP 126/79
[2019-01-18] MEDS: ACETAMINOPHEN 325 MG TABLET PO PRN (23:02)
[2019-01-19 03:31] VITALS: BP 112/63
[2019-01-19 05:09] LABS: ANION GAP 4 mmol/L (5-15); CALCIUM 8.1 mg/dL (8.5-10.1); CHLORIDE 108 mmol/L (98-107)
[2019-01-19 05:14] LABS: % IRON SATURATION 9 % (20-55); CREATININE 0.87 mg/dL (0.7-1.3); IRON LEVEL 28 mcg/dL (65-175); TOTAL IRON BINDING CAPACITY 317 mcg/dL (250-450)
[2019-01-19] MEDS ORDERED: MAGNESIUM SULFATE PMX 2GM/50ML 50 ML IV ONE (06:00)
[2019-01-19 06:45] VITALS: BP 116/71
[2019-01-19] MEDS: TAMSULOSIN 0.4 MG CAP.ER.24H PO SCH (09:06)
[2019-01-19] MEDS: POTASSIUM CHLORIDE 20 MEQ TAB.ER.PRT PO SCH ×2 (09:07→16:11)
[2019-01-19] MEDS: DIGOXIN 0.125 MG TABLET PO SCH (09:07)
[2019-01-19] MEDS: RIVAROXABAN 20 MG TABLET PO SCH (09:07)
[2019-01-19] MEDS: SERTRALINE 50MG TABLET PO SCH (09:07)
[2019-01-19] MEDS: CARVEDILOL 12.5 MG TABLET PO SCH (09:07)
[2019-01-19] MEDS: OMEPRAZOLE 20 MG CAPSULE.DR PO SCH (09:07)
[2019-01-19] MEDS: HYDROcodone/APAP 5/325 TABLET PO PRN ×3 (09:08→22:26)
[2019-01-19] MEDS: ISOSORBIDE MONONITRATE ER 60 MG TABLET PO SCH (09:08)
[2019-01-19] MEDS: FUROSEMIDE 20 MG/2 ML IV SCH ×2 (09:11→16:12)
[2019-01-19] MEDS: FLUTICASONE NASAL SPRAY 16GM NAS SCH (10:17)
[2019-01-19 13:39] VITALS: BP 116/70
[2019-01-19] MEDS: DOCUSATE 100 MG CAPSULE PO PRN (16:11)
[2019-01-19] MEDS: ATORVASTATIN 20 MG TABLET PO SCH (20:07)
[2019-01-19] MEDS: ACETAMINOPHEN 325 MG TABLET PO PRN (20:22)
[2019-01-19 20:37] VITALS: BP 127/78
[2019-01-20 01:01] VITALS: BP 134/82
[2019-01-20 05:24] LABS: ANION GAP 4 mmol/L (5-15); CALCIUM 8.1 mg/dL (8.5-10.1); CHLORIDE 105 mmol/L (98-107)
[2019-01-20 05:26] LABS: CREATININE 0.85 mg/dL (0.7-1.3)
[2019-01-20 06:33] VITALS: BP 133/80
[2019-01-20] MEDS: FUROSEMIDE 20 MG/2 ML IV SCH (07:32)
[2019-01-20 09:00] VITALS: BP 124/76
[2019-01-20] MEDS: FLUTICASONE NASAL SPRAY 16GM NAS SCH (09:07)
[2019-01-20] MEDS: CARVEDILOL 12.5 MG TABLET PO SCH (09:07)
[2019-01-20] MEDS: RIVAROXABAN 20 MG TABLET PO SCH (09:08)
[2019-01-20] MEDS: SERTRALINE 50MG TABLET PO SCH (09:08)
[2019-01-20] MEDS: POTASSIUM CHLORIDE 20 MEQ TAB.ER.PRT PO SCH ×2 (09:08→16:33)
[2019-01-20] MEDS: ISOSORBIDE MONONITRATE ER 60 MG TABLET PO SCH (09:08)
[2019-01-20] MEDS: TAMSULOSIN 0.4 MG CAP.ER.24H PO SCH (09:08)
[2019-01-20] MEDS: OMEPRAZOLE 20 MG CAPSULE.DR PO SCH (09:08)
[2019-01-20] MEDS: DIGOXIN 0.125 MG TABLET PO SCH (09:08)
[2019-01-20 11:18] VITALS: BP 108/66
[2019-01-20 14:42] VITALS: BP 121/74
[2019-01-20] MEDS: FUROSEMIDE 40 MG TABLET PO SCH (16:33)
[2019-01-20 20:10] VITALS: BP 140/77
[2019-01-20] MEDS: ATORVASTATIN 20 MG TABLET PO SCH (20:18)
[2019-01-20] MEDS: ACETAMINOPHEN 325 MG TABLET PO PRN (20:23)
[2019-01-21 03:20] VITALS: BP 144/80
[2019-01-21 05:45] LABS: CHLORIDE 105 mmol/L (98-107)
[2019-01-21 05:53] LABS: ANION GAP 4 mmol/L (5-15); CALCIUM 8.6 mg/dL (8.5-10.1); CREATININE 0.75 mg/dL (0.7-1.3)
[2019-01-21 06:57] VITALS: BP 123/68
[2019-01-21] MEDS ORDERED: FURO40TA6 PO (07:54)
[2019-01-21] MEDS: ISOSORBIDE MONONITRATE ER 60 MG TABLET PO SCH (09:16)
[2019-01-21] MEDS: TAMSULOSIN 0.4 MG CAP.ER.24H PO SCH (09:16)
[2019-01-21] MEDS: OMEPRAZOLE 20 MG CAPSULE.DR PO SCH (09:16)
[2019-01-21] MEDS: CARVEDILOL 12.5 MG TABLET PO SCH (09:16)
[2019-01-21] MEDS: FUROSEMIDE 40 MG TABLET PO SCH (09:16)
[2019-01-21] MEDS: DIGOXIN 0.125 MG TABLET PO SCH (09:16)
[2019-01-21] MEDS: RIVAROXABAN 20 MG TABLET PO SCH (09:16)
[2019-01-21] MEDS: POTASSIUM CHLORIDE 20 MEQ TAB.ER.PRT PO SCH (09:16)
[2019-01-21] MEDS: SERTRALINE 50MG TABLET PO SCH (09:16)
[2019-01-21] MEDS: FLUTICASONE NASAL SPRAY 16GM NAS SCH (09:17)
[2019-01-21 12:11] VITALS: BP 114/79
== END 2019-01-21 14:49 | disposition home health service (06) | DRG 291 ==
LOC: ED 18:00 → EDIP 18:31 → 5SO 19:47
PROVIDERS: ADMIT Student in an Organized Health Care Education/Training Program; ATTEND Student in an Organized Health Care Education/Training Program
DX: I11.0 Hypertensive heart disease with heart failure (principal); J96.01 Acute respiratory failure with hypoxia; I50.33 Acute on chronic diastolic (congestive) heart failure; D64.9 Anemia, unspecified; E78.5 Hyperlipidemia, unspecified; E83.42 Hypomagnesemia; E87.6 Hypokalemia; F32.9 Major depressive disorder, single episode, unspecified; G89.29 Other chronic pain; I27.20 Pulmonary hypertension, unspecified; I34.0 Nonrheumatic mitral (valve) insufficiency; I25.2 Old myocardial infarction; I48.0 Paroxysmal atrial fibrillation; Z98.61 Coronary angioplasty status; Z66 Do not resuscitate; N40.0 Benign prostatic hyperplasia without lower urinary tract symptoms; K21.9 Gastro-esophageal reflux disease without esophagitis
CPT/HCPCS: 36415; 71045; 80048; 80053; 82040; 82728; 83540; 83550; 83735; 83880; 84443; 84484; 85014; 85018; 85025; 85610; 93005; 94660; G0378; J1940; J3475

== ENCOUNTER 2019-02-17 18:54 | Emergency (ER) | payer MEDICARE ==
[~2019-02-17] VITALS: Ht 188 cm; Wt 72.0 kg
[~2019-02-17 18:54] MED LIST changes: +FURO40TA6 PO; +SERT25TA3 PO
[2019-02-17] MEDS ORDERED: LIDOCAINE 1%-EPI 1:100K, 20ML ONE (19:23)
[2019-02-17] MEDS ORDERED: OXYMETAZOLINE NASAL SPRAY 0.05%,30ML ONE (19:24)
[2019-02-17] MEDS ORDERED: OXYMETAZOLINE NASAL SPRAY 0.05%, 15ML NAS ONE (19:30)
[2019-02-17] MEDS ORDERED: LIDOCAINE 1%-EPI 1:100K, 20ML INFIL ONE (19:30)
--- NOTE | 2019-02-17 19:45 | NUR ---
Patient lives at a [facility] and if dc'd this is the phone number to call for report.
[2019-02-17 20:04] VITALS: BP_DIAS 56
[2019-02-17 21:12] VITALS: BP_SYST 134
== END 2019-02-17 21:14 | disposition home or self-care (01) ==
LOC: ED 20:50
DX: R04.0 Epistaxis (principal); I48.91 Unspecified atrial fibrillation; I11.0 Hypertensive heart disease with heart failure; I25.10 Atherosclerotic heart disease of native coronary artery without angina pectoris; I50.9 Heart failure, unspecified; Z72.89 Other problems related to lifestyle; Z90.89 Acquired absence of other organs
CPT/HCPCS: 30901; 99284